=== PATIENT | male | born 1950 | race Caucasian/White ===

== ENCOUNTER 2017-09-22 13:02 | Outpatient (CLI) | payer MEDICARE, BC | END 2017-09-22 13:03 | disposition home or self-care (01) | LOC: BICRAD 13:02 | PROVIDERS: ATTEND Family Medicine | DX: M25.551 Pain in right hip (principal); M16.11 Unilateral primary osteoarthritis, right hip; R26.9 Unspecified abnormalities of gait and mobility; I70.90 Unspecified atherosclerosis ==

== ENCOUNTER 2017-10-21 13:57 | Outpatient (CLI) | payer MEDICARE, BC ==
--- NOTE | 2017-10-21 15:23 | MRI ---
BRAIN MRI WITHOUT CONTRAST: INDICATION: Abnormal gait with left arm motor abnormality, left leg weakness, and history of fall. FINDINGS: Intraventricular system is age-appropriate in size. There is no acute territorial infarction, mass e ffect, or midline shift. Minimal chronic ischemic disease of the cerebral white matter is present. The central skull base flow voids are patent. There is prominent mucosal thickening of the right max illary sinus. Minimal right mastoid fluid signal is present. There are scattered punctate susceptib ility foci of the cerebral hemispheres bilaterally. IMPRESSION: 1. No acute territorial infarction or mass effect. 2. Several scattered punctate foci of susceptibility. This can be seen in the setting of a vasculop athy, such as amyloid angiopathy. Recommend clinical correlation. 3. Minimal chronic ischemic disease. 4. Prominent mucosal thickening of the right paranasal sinus. As clinically indicated, followup wit h dedicated paranasal sinus CT may be performed for further evaluation. POS: [facility]
--- NOTE | 2017-10-21 16:02 | MRI ---
MRI CERVICAL SPINE NONCONTRAST: 10/21/17 HISTORY: 67-year-old male with M47.12, cervical spondylosis with myelopathy. Abnormal gait. Status post fall. Dr. Reed discussed the findings by telephone with Dr. Sweta Yee at 3:05 p.m. on 10/21/17. COMPARISON: None. FINDINGS: There is a well circumscribed, oval, 4 x 2 x 2 cm mass in the subcutaneous fat centered to the right of midline, posterior to the dorsal lumbar fascia of C7 to T1-2. It has intermediate signal intensit y on T1WI; and mixed signal intensity, predominantly hyperintense, on T2WI. It has at least one inter nal septation. There is no surrounding edema in the adjacent subcutaneous fat. Moderate to severe degenerative disc changes at C3-4, C4-5, and C6-7. Bone marrow edema at the end pl ates at C6-7. The end plate bone marrow edema is mostly on the right side. There is edema in the righ t prevertebral space at C6 and C7. There is T2 hyperintense signal in the space between the C6 and C7 spinous processes. Vertebral body heights are maintained. Bone marrow edema extends into the right C7 pedicle and involves the right C7 upper articular facet. There are degenerative facet changes, moderate at a few levels on the left and mostly mild on the rig ht. The findings by individual levels are as follows: C1-2: No central stenosis. C2-3: No central stenosis. Mild to moderate left neural foraminal stenosis. Mild right neural foramin al stenosis. C3-4: Broad based disc-osteophytic bar complex, asymmetrically larger on the left side than right, en croaches upon the spinal canal, indenting the spinal cord and displacing it posteriorly within the sp inal canal, causing moderate to severe central spinal canal stenosis. Bilateral uncinate process oste ophytes. Bilateral moderate neural foraminal stenosis. C4-5: Broad based disc-osteophyte bar complex indents the ventral surface of the spinal cord. Moderat e to severe central spinal canal stenosis. Bilateral uncinate process osteophytes. Severe right neura l foraminal stenosis. Moderate left neural foraminal stenosis. C5-6: Broad based disc-osteophytic bar complex encroaches upon the anterior aspect of the spinal francheska l. There is a superimposed small central disc protrusion which indents the ventral surface of the spi nal cord. Moderate to severe central spinal canal stenosis. moderate to severe bilateral neural carol inal stenosis. C6-7: There is a moderate to large central and bilateral paracentral extruded disc herniation with gtz perior migration of disc material a short distance almost to the pedicle level of C6, and inferior mi gration of disc material to the pedicle level of C7. This is disc herniation occupies approximately 5 0 to 75% of the cross-sectional area of the spinal canal, severely indenting and deforming the spinal cord which is severely flattened in the anteroposterior dimension. There is a small focus of intrame dullary T2 hyperintensity at this location representing cord edema. There is ligamentum flavum thicke nasir significantly indenting the dorsal surface of the spinal cord. CSF signal is obliterated. These factors result in extremely severe central spinal canal stenosis. Bilateral uncinate process osteophy michelle result in severe bilateral neural foraminal stenosis. C7-T1: Moderate central spinal canal stenosis mostly on a developmental basis. Bilateral moderate bhumi ral foraminal stenosis. IMPRESSION: 1. Severe cord compression and extremely severe central spinal canal stenosis, and least mild co rd edema, at C6-7, due to a moderate to large central and bilateral paracentral extruded disc herniat ion. It is possible that this could be a traumatic disc extrusion, given the history of fall. 2. Cervical spondylosis, with multilevel high grade central spinal canal stenosis, and high grad e neural foraminal stenosis. 3. Signs of focal traumatic injury to the interspinous ligament at C6-7. 4. Bone marrow edema of the end plates on the right side at C6-7. This could represent Modic typ e I changes, or could represent traumatic acute bone contusion. 5. Well circumscribed superficial mass in the subcutaneous fat posterior to the upper thoracic s pine. This appears non-aggressive. It is probably cystic with proteinaceous or hemorrhagic contents. Clinical correlation is recommended.
--- NOTE | 2017-10-21 16:19 | MRI ---
MRI LUMBAR SPINE NONCONTRAST: DATE: 10/21/17 HISTORY: 67-year-old male with R26.9 - gait abnormality. COMPARISON: None. FINDINGS: There is mild anterior wedge compression deformity of T12 without bone marrow edema, indicating that it is old. The L1 through L5 vertebral body heights are maintained. T12-L1: No other findings. L1-2: Conus medullaris terminates at this level. No other findings. L2-3: Minimal disc bulge. Disc space maintained. No central or neural foraminal stenosis. L3-4: Severe left sided end plate bone marrow edema represents Modic type 1 changes. Moderate to skylar re right sided disc space narrowing. Severe left disc space narrowing with end plate irregularities. Joint effusions within the bilateral facet joint spaces. Mild to moderate bilateral degenerative face t hypertrophy. Central and left paracentral moderate sized disc extrusion which significantly decreas es the cross-sectional area of the spinal canal, causing crowding of the cauda equina, and effacement of CSF signal. This disc extrusion migrates superiorly in the left paracentral epidural space, reach ing the L3 pedicle level. the disc extrusion completely effaces the left lateral recess, impinging on nerve roots, especially the left L4 nerve root. Moderate right neural foraminal stenosis. Severe lef t neural foraminal stenosis L4-5: Moderate disc space narrowing, asymmetrically more severe on the right side than left. Moderate to severe bilateral neural foraminal stenosis. Bilateral moderate degenerative facet changes, with f acet hypertrophy and facet joint effusions. Tiny subchondral cysts at the right facet complex. Diffus e disc bulge. Degenerative retrolisthesis of L3 on L4. Mild to moderate central spinal canal stenosis . Lateral recess stenosis bilaterally. L5-S1: There are bilateral L5 pars interarticularis defects causing a grade I anterolisthesis of L5 o n S1. There is moderate to severe disc space narrowing. There is severe bilateral neural foraminal st enosis with severe compression and deformity of the bilateral exiting L5 nerve roots. At the mid L5 l evel, there is decreased transverse diameter of the spinal canal and thecal sac causing mild to moder ate thecal sac stenosis. There is no thecal sac stenosis at the level of the superior end plate of S1 . No high grade bilateral degenerative facet changes. IMPRESSION: 1. At L3-4, there is a moderate to large extruded disc herniation with superior migration of ext ruded disc material, causing severe central spinal canal stenosis, and impingement on nerve roots, es pecially the left L4 nerve root. 2. Grade I spondylolisthesis at L5-S1 due to bilateral L5 spondylolysis. 3. Chronic, severe bilateral neural foraminal stenosis at L5-S1, with severe chronic compression of the bilateral L5 exiting nerve roots. 4. Other levels of high grade neural foraminal stenosis. KELLY Haque POS: [facility]
== END 2017-10-21 13:58 | disposition home or self-care (01) ==
LOC: TBSIIMAG 13:57
PROVIDERS: ATTEND Psychiatry & Neurology Neurology
DX: M50.123 Cervical disc disorder at C6-C7 level with radiculopathy (principal); M47.22 Other spondylosis with radiculopathy, cervical region; R26.9 Unspecified abnormalities of gait and mobility; M48.02 Spinal stenosis, cervical region; M99.81 Other biomechanical lesions of cervical region; M89.9 Disorder of bone, unspecified; M51.26 Other intervertebral disc displacement, lumbar region; M48.061 Spinal stenosis, lumbar region without neurogenic claudication; M43.17 Spondylolisthesis, lumbosacral region; M47.896 Other spondylosis, lumbar region; M99.83 Other biomechanical lesions of lumbar region; I67.82 Cerebral ischemia
CPT/HCPCS: 70551; 72141; 72148

== ENCOUNTER 2017-10-21 15:53 | Emergency (ER) | payer MEDICARE, BC ==
[2017-10-21] MEDS ORDERED: Dexamethasone 10 MG/ML VIAL ONE (19:15)
[2017-10-21 19:24] LABS: Bilirubin Negative (Negative); Blood, Urine Negative (Negative); Clarity CLEAR (Clear); Glucose, Urine (Dipstick) 500 mg/dL (Negative); Leukocyte Negative (Negative); Nitrite Negative (Negative); Protein, Urine (Dipstick) Negative (Neg-Trace); Specific Gravity, Urine 1.014 (1.002-1.036); pH, Urine 6.5 (5.0-9.0)
[2017-10-21 19:44] LABS: #Eosinphils 0.1 thou/uL (0.0-0.7); #Monocytes 0.6 thou/uL (0.11-0.59); #Neutrophils 5.2 thou/uL (1.40-6.50); %Basophils 0.5 % (0.0-1.0); %Eosinophils 1.4 % (0.0-10.0); %Lymphocytes 14.3 % (21.0-51.0); %Monocytes 8.1 % (0.0-10.0); %Neutrophils 75.7 % (42.0-75.0); Hemoglobin 13.4 g/dL (14.0-18.0); Mean Corpuscular HGB CONC 33.7 g/dL (32.0-36.0); Mean Corpuscular Hemoglobin 29.1 pg (27.0-31.0); Mean Corpuscular Volume 86.5 fL (78.0-98.0); Mean Platelet Volume 7.4 fL (7.4-10.4); Platelet Count 203 thou/uL (130-400); RBC Distribution Width 14.3 % (11.5-14.5); Red Blood Cell (RBC) Count 4.61 mill/uL (4.70-6.10); White Blood Cell (WBC) Count 6.8 thou/uL (4.8-10.8)
[2017-10-21 19:49] LABS: INR-International Normal Ratio 2.2; PTT 51.4 SEC (22.9-36.1); Prothrombin Time 24.6 SEC (12.0-14.7)
[2017-10-21 20:06] LABS: ALT (SGPT) 27 U/L (8-55); AST (SGOT) 29 U/L (5-34); Albumin 4.3 g/dL (3.4-4.8); Alkaline Phosphatase 70 U/L (40-150); Anion Gap 14 mmol/L (10-20); BUN (Urea Nitrogen) 16 mg/dL (8.4-25.7); Bilirubin, Total 1.1 mg/dL (0.2-1.2); Calc. Creatinine Clearance 0 mL/min (70-130); Calcium 9.7 mg/dL (7.8-10.44); Carbon Dioxide 25 mmol/L (23-31); Chloride 99 mmol/L (98-107); Estimated GFR-MDRD 70; Globulin 2.5 g/dL (2.4-3.5); Glucose 132 mg/dL (80-115); Lipase 37 U/L (8-78); Magnesium 1.4 mg/dL (1.6-2.6); Potassium 3.8 mmol/L (3.5-5.1); Protein, Total 6.8 g/dL (5.8-8.1); Sodium 134 mmol/L (136-145)
--- NOTE | 2017-10-22 04:13 | CON ---
DATE OF CONSULTATION: 10/21/2017 HISTORY OF PRESENT ILLNESS: Mr. Rincon is a 67-year-old gentleman with significant past medical his tory of coronary bypass, who was sent to our ED for evaluation following MRI of cervical and lumbar s pine. Dr. Yee has seen this patient in the office for progressive weakness and unsteady gait. Over the last six weeks, the patient had a few falls. He states that his right leg is worse than his lef t, they give out from time to time. 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 MRI of the cervical spine showed severe spinal stenosis at C6-C7. The patien t also states that he has some neck pain and radiating pain through his shoulders and numbness in his hands. The patient states that he has had difficulty with his upper extremities for 10+ years. He has had difficulty with fine motor skills. He is unable to button his shirts very well. He has give n out bowling because of some tremors. REVIEW OF SYSTEMS: A 10-point review of systems has been conducted and is negative, otherwise stated in HPI above. PAST MEDICAL HISTORY: Arrhythmia, atrial fibrillation, diabetes, hyperlipidemia, hypertension, muscu loskeletal disorder, rheumatoid arthritis. PAST SURGICAL HISTORY: Coronary artery bypass and graft 4 vessels in 2005. SOCIAL HISTORY: The patient denies any alcohol, drug, or tobacco use. The patient lives at home wit h his and family. The patient is active. He is retired and has only recently started using a c ane to ambulate. ALLERGIES: No known drug allergies. MEDICATIONS: Aspirin 81 mg, lisinopril/hydrochlorothiazide, carvedilol, glyburide, Cartia, metformin , atorvastatin, warfarin, ezetimibe, fish oil, vitamin D, methotrexate, folic acid. PHYSICAL EXAMINATION: VITAL SIGNS: BP 180/86, heart rate 81, respiratory rate 16, temperature 98.1, pain 5/10, 99 O2 sats on room air. CONSTITUTIONAL: The patient is afebrile. Respiratory rate is normal. Appears nontoxic. Fairly rel axed, lying in his hospital bed. The patient is oriented to person, place, and time. HEAD: Normocephalic, atraumatic. EYES: Pupils are equal, round, and reactive to light. Extraocular movements are intact. No nystagm us. NECK: Trachea is midline. The patient has cervical collar on and tenderness along spine. Extension causes numbness across the shoulder blades, flexion is painful, rotation is painful. RESPIRATORY: Normal work of breathing room air, symmetrical lung expansion. CARDIOVASCULAR: Regular rate and rhythm. NEUROLOGIC: The patient has 5/5 strength in upper and lower extremities. The patient has decreased reflexes in the upper extremity. The patient is oriented to person, place, and thing. Cranial nerve s II-XII are grossly intact. IMAGING: Cervical spine MRI shows severe cord compression and extremely severe central spinal canal stenosis with at least mild cord edema and C6-C7 due to herniated nucleus pulposus. Lumbar MRI shows moderate herniated nucleus pulposus at L3-L4 causing central spinal stenosis, especi ally to a left L4 nerve root, grade 1 spondylolisthesis at L5-S1, bilateral severe neuroforaminal isauro nosis at L5-S1. ASSESSMENT AND PLAN: Mr. Rincon who is a 67-year-old gentleman reports to the ED with chronic decre ase in gait, due to cervical spinal stenosis. The patient has had upper extremity dysfunction, slowl y progressively getting worse over the last 10+ years. More recently, gait and station have become d eteriorated over the last 1 to 2 months. The patient is also currently taking warfarin and aspirin a long with fish oil. These blood thinners make it unsafe to perform surgery at this time. The patien t will need to be transitioned to low molecular weight heparin prior to the surgery and off his blood thinners for 2 weeks after surgery. The patient should be started on Decadron 4 mg q.6. The patient needs to be monitored. He needs to wear his cervical collar and he should follow up with our office. At this time, surgical intervention would be unsafe due to his blood thinners. The [facility] ient will also need to obtain cardiac and anesthesia clearance for surgery.
== END 2017-10-21 21:00 | disposition home or self-care (01) ==
LOC: ERS 15:53
DX: M48.061 Spinal stenosis, lumbar region without neurogenic claudication (principal); M48.02 Spinal stenosis, cervical region; M51.26 Other intervertebral disc displacement, lumbar region; E11.9 Type 2 diabetes mellitus without complications; I10 Essential (primary) hypertension
CPT/HCPCS: 36415; 36416; 70551; 72141; 72148; 80053; 81003; 83690; 83735; 85025; 85610; 85730; 93005; 96374; J1100

== ENCOUNTER 2017-10-26 20:09 | Inpatient (IN) | payer MEDICARE, BC ==
[2017-10-26 21:24] VITALS: BMI 25.9
[2017-10-26] MEDS ORDERED: Acetaminophen 325 MG TAB PO PRN (21:58)
[2017-10-26] MEDS ORDERED: traMADol HCl 50 MG TAB PO PRN (21:59)
[2017-10-26] MEDS ORDERED: HYDROcodone/Acetaminophen 5/325 mg Tablet PO PRN (22:00)
[2017-10-26] MEDS ORDERED: CEFAZOLIN/Water 2 GM/20 ML SYRINGE SLOW IVP SCH (22:00)
[2017-10-26] MEDS ORDERED: tiZANidine HCl 4 MG TAB PO PRN (22:02)
[2017-10-26 22:49] LABS: #Lymphocytes 0.4 thou/uL (1.20-3.40); #Monocytes 0.6 thou/uL (0.11-0.59); #Neutrophils 12.3 thou/uL (1.40-6.50); %Basophils 0.1 % (0.0-1.0); %Eosinophils 0.1 % (0.0-10.0); %Lymphocytes 3.2 % (21.0-51.0); %Monocytes 4.1 % (0.0-10.0); %Neutrophils 92.5 % (42.0-75.0); Hemoglobin 14.7 g/dL (14.0-18.0); Mean Corpuscular Hemoglobin 29.4 pg (27.0-31.0); Mean Corpuscular Volume 86.7 fL (78.0-98.0); Mean Platelet Volume 8.1 fL (7.4-10.4); Platelet Count 230 thou/uL (130-400); White Blood Cell (WBC) Count 13.2 thou/uL (4.8-10.8)
[2017-10-26 22:55] LABS: INR-International Normal Ratio 1.2; Prothrombin Time 15.4 SEC (12.0-14.7)
[2017-10-26 22:56] LABS: PTT 31.1 SEC (22.9-36.1)
[2017-10-26 23:08] LABS: Anion Gap 25 mmol/L (10-20); BUN (Urea Nitrogen) 65 mg/dL (8.4-25.7); Calc. Creatinine Clearance 32 mL/min (70-130); Calcium 9.7 mg/dL (7.8-10.44); Carbon Dioxide 20 mmol/L (23-31); Chloride 95 mmol/L (98-107); Estimated GFR-MDRD 31; Glucose 397 mg/dL (80-115); Potassium 4.9 mmol/L (3.5-5.1); Sodium 135 mmol/L (136-145)
[2017-10-27] MEDS: Sodium Chloride 0.9% 1,000 ML IV SCH ×2 (00:13→12:54)
[2017-10-27] MEDS ORDERED: Dextrose 50% Abboject 50 ML SYRINGE SLOW IVP PRN (08:23)
[2017-10-27] MEDS ORDERED: Dextrose 5% in Water 1,000 ML IV PRN (08:23)
[2017-10-27] MEDS ORDERED: Aspirin 81 mg Enteric Coated Tablet PO SCH (09:00)
[2017-10-27] MEDS ORDERED: Non-Formulary Item 1 EACH (Cholecalciferol (Vitamin D3) [Vitamin D] 2,000 UNIT) PO SCH (09:00)
[2017-10-27] MEDS ORDERED: metFORMIN 500 MG TAB PO SCH (09:00)
[2017-10-27] MEDS ORDERED: Lisinopril/Hydrochlorothiazide 20/25 mg Tablet PO SCH (09:00)
--- NOTE | 2017-10-27 09:23 | CON ---
DATE OF CONSULTATION: 10/27/2017 PRIMARY CARE PHYSICIAN: Dr. Yonny Cobian. PRIMARY SERVICE ATTENDING: Dr. Hauser with Neurosurgery. REASON FOR CONSULT: Medical management/preoperative clearance for cervical diskectomy/fusion. HISTORY OF PRESENT ILLNESS: This is a 67-year-old male who presents to [facility] under the Neurosurgical service after concern for worsening radiculopathy involving the cervical spine as well as lumbar spine. The patient with recent MRI of the cervical and lumbar spine showing severe spinal stenosis at the C6 and C7 region as well as a herniated nucleus pulposus of L3 and L4 with central spinal stenosis. The patient is being prepared for surgical intervention on 10/28/2017. The patient admits to a history of coronary artery disease undergoing bypass grafting x4 vessels in 2005. The patient developed in-stent stenosis, prompting a repeat cardiac catheterization at which point the patient was recommended for bypass surgery. The patient states he has been doing fairly we ll since the bypass surgery and has had no further cardiac intervention since 2005. The patient did develop postoperative atrial fibrillation during the bypass procedure undergoing subsequent cardiover levi and has remained on rate control measures with diltiazem as well as anticoagulation with Coumadi n. Patient states his last echocardiogram was approximately 2 years ago. The patient remains active ; however, has had difficulty ambulating as stated previously with recent fall in 07/2017 when his ri ght lower extremity gave way unexpectedly. The patient also had an episode of falling with a minor h ead injury in the last 1-2 weeks prior to this evaluation. The patient also admits to greater than 2 0 year history of diabetes mellitus on oral hypoglycemics with last A1c of approximately 7.5. Curren tly, the patient denies any specific chest pain, shortness of breath, left arm or jaw discomfort. Th e patient states he normally is very active walking in the mall for exercise as well as performing al l activities of daily living. PAST MEDICAL HISTORY: 1. Atrial fibrillation with chronic anticoagulation with Coumadin. 2. Diabetes mellitus type 2 on oral hypoglycemics greater than 20 years. 3. Hyperlipidemia. 4. Hypertension. 5. Rheumatoid arthritis. 6. Pericardial effusion, status post pericardial window in 2005. PAST SURGICAL HISTORY: 1. Status post coronary artery bypass grafting x4 vessels in 2005. 2. Status post cardiac catheterization with stent placement. 3. Status post pericardial window secondary to pericardial effusion. 4. Status post cardioversion secondarily to atrial fibrillation. CURRENT MEDICATIONS: 1. Aspirin 81 mg 1 tab p.o. daily. 2. Lipitor 80 mg p.o. at bedtime. 3. Coreg 25 mg p.o. q.a.m. and 37.5 mg p.o. at bedtime. 4. Vitamin D 2000 units p.o. daily. 5. Dexamethasone 4 mg p.o. q.i.d. 6. Diltiazem XT 120 mg p.o. daily. 7. Zetia 10 mg p.o. at bedtime. 8. [place] 3 fatty acids 1200 mg p.o. daily. 9. Folic acid 1 mg p.o. at bedtime. 10. Glyburide 5 mg p.o. b.i.d. 11. Lisinopril/HCTZ 20/25 mg 1 tab p.o. daily. 12. Metaxalone 800 mg p.o. b.i.d. 13. Metformin 1000 mg p.o. b.i.d. 14. Methotrexate 2.5 mg 5 tablets p.o. weekly. 15. Coumadin 5 mg p.o. at bedtime. ALLERGIES: No known drug allergies. FAMILY HISTORY: Positive for diabetes mellitus. SOCIAL HISTORY: The patient is , residing in [place], [place]. No current alcohol, tobacco or il licit drug use. Functional of all activities of daily living. Recent use of a rolling walker after lower extremity weakness and fall. REVIEW OF SYSTEMS: The following complete review of systems was negative, unless otherwise mentioned in the HPI or below: Constitutional: Weight loss or gain, ability to conduct usual activities. Skin: Rash, itching. Eyes: Double vision, pain. ENT/Mouth: Nose bleeding, neck stiffness, pain, tenderness. Cardiovascular: Palpitations, dyspnea on exertion, orthopnea. Respiratory: Shortness of breath, wheezing, cough, hemoptysis, fever or night sweats. Gastrointestinal: Poor appetite, abdominal pain, heartburn, nausea, vomiting, constipation, or diarr hea. Genitourinary: Urgency, frequency, dysuria, nocturia. Musculoskeletal: Pain, swelling. Neurologic/Psychiatric: Anxiety, depression. Allergy/Immunologic: Skin rash, bleeding tendency. PHYSICAL EXAMINATION: VITAL SIGNS: Currently, blood pressure 156/81, pulse 100, respiratory rate 16, temperature 97.9 degr ees Fahrenheit, O2 saturation 98% on room air. GENERAL APPEARANCE: This is a 67-year-old male, alert and oriented x3, pleasant, conversant, in no a cute distress. HEENT: Pupils are equal, round, and reactive to light and accommodation. Extraocular muscles are in tact. No scleral icterus, no conjunctival injection. Nares patent. OP is clear. Teeth in good rep air. NECK: Supple, no cervical adenopathy, no thyromegaly, no carotid bruits, no JVD appreciated. Cervic al spine with full active and passive range of motion. No meningeal signs appreciated. CHEST: Lungs are clear to auscultation bilaterally. CARDIOVASCULAR: S1, S2 with irregular rate and rhythm. ABDOMEN: Rounded, soft, nontender, nondistended. Bowel sounds are positive in all four quadrants. There is no hepatosplenomegaly, no abdominal bruits, no rebound or guarding appreciated. EXTREMITIES: Warm and dry with fair turgor. No clubbing, cyanosis or asymmetric edema appreciated. Pulses palpable distally at the dorsalis pedis, posterior tibial, and popliteal arteries bilaterally . Capillary refill less than 2 seconds. NEUROLOGIC: Cranial nerves II through XII are grossly intact. No focal or lateralizing signs apprec iated. PERTINENT LABORATORY DATA AND X-RAY FINDINGS: Sodium 135, potassium 4.9, chloride 95, CO2 of 20, ani on gap 25, BUN 65, creatinine 2.14, estimated GFR 31, glucose 397, calcium 9.7. CBC showed a white b lood cell count of 13.2, hemoglobin 14.7, hematocrit 43, platelet count 230 with 93% neutrophils. PT 15.4, INR 1.2, PTT 31.1. MRI of the brain dated 10/21/2017 showed no acute intracranial process. M inimal chronic ischemic changes noted. Cervical spine MRI dated 10/21/2017 showed severe cord compre ssion with severe central spinal canal stenosis at C6 on C7 due to moderate to large central and bila teral paracentral extruded disk herniation. Lumbar spine MRI dated 10/21/2017 showed moderate to lar ge extruded disk herniation at L3 on L4 with severe central spinal canal stenosis. Multiple degenera tive changes noted throughout the lumbar spine, please see dictated report for details. EKG dated by my interpretation shows atrial fibrillation with heart rates in the 90s. Right bundle br anch block pattern noted. No acute ST-T wave changes appreciated. ASSESSMENT AND PLAN: 1. Diabetes mellitus type 2. We will continue insulin sliding scale for reflexive coverage. Hold m etformin x48 hours. Accu-Cheks a.c. and at bedtime. Continue glyburide 5 mg p.o. b.i.d. 2. Acute kidney injury on chronic kidney disease stage 3. We will continue intravenous normal salin e at 75 mL per hour. Avoid nephrotoxic agents and contrast media. Hold metformin and lisinopril/HCT Z. Repeat creatinine in the a.m. 3. Coronary artery disease. Chronic and stable. Continue aspirin 81 mg daily. Continue Lipitor 80 mg at bedtime. Continue carvedilol 25 mg q.a.m. and 37.5 mg at bedtime. Check 2D transthoracic ech ocardiogram. 4. Chronic atrial fibrillation with chronic anticoagulation with Coumadin. Rate controlled currentl y. Check 2D transthoracic echocardiogram as stated previously. Hold anticoagulation due to pending surgical intervention. Resume anticoagulation postoperatively. 5. Hypertension. Resume home antihypertensive regimen and monitor clinical response. Hold lisinopr il/HCTZ due to acute kidney injury. 6. Cervical and lumbar spinal stenosis. Plan for surgical intervention with decompression and fusio n. A planned surgical intervention on 10/28/2017 per Neurosurgical service. Mild to moderate risk o f proceeding with current planned surgical intervention given the patient's coronary artery disease a nd atrial fibrillation history. 7. Prophylaxis. Sequential compression devices while in bed. Pepcid 20 mg p.o. b.i.d. 8. Code status is full. Surrogate medical decision maker is patient's spouse. Thank you for the consult. We will continue to follow with primary service during the hospital cours e.
[2017-10-27] MEDS: Carvedilol 25 MG TAB PO SCH ×2 (09:34→21:10)
[2017-10-27] MEDS: Aspirin 81 mg Enteric Coated Tablet PO SCH (09:34)
[2017-10-27] MEDS: Dexamethasone 4 MG TAB PO SCH ×4 (09:35→21:11)
--- NOTE | 2017-10-27 09:53 | PRG ---
DATE OF SERVICE: 10/27/2017 Mr. Rincon is hospital day #1 being direct admitted to undergo a C6-7 ACDF tomorrow afternoon for ce rvical spondylytic myelopathy. The patient does not complain of pain at all, but continues to have d ifficulty with fine motor coordination of the hands. He has remained mostly on bed rest, although he does have bathroom privileges. He has bilateral hand tdp displays analyst strength weakness, but otherwise has good strength in the hands and the legs. He is wearing a well-fitting [place] collar. I have answered his numerous questions today and we will plan to undergo surgery tomorrow. He can continue his 81 mg as pirin and we have hospitalist on board to help manage the patient's medical conditions. He will be n .p.o. at midnight and this has been ordered. Please call with any questions or changes in the patien t's neurologic status. Otherwise, we will check on him in the morning.
[2017-10-27] MEDS: glyBURIDE 5 MG TAB PO SCH ×2 (10:55→21:12)
[2017-10-27] MEDS: HumaLOG 300 UNITS/3 ML VIAL SC PRN ×3 (12:54→21:14)
[2017-10-27] MEDS: Senokot 8.6 MG TAB PO SCH (17:08)
[2017-10-27] MEDS ORDERED: Non-Formulary Item 1 EACH (Atorvastatin Calcium [Atorvastatin Calcium] 80 MG) PO SCH (21:00)
[2017-10-27] MEDS ORDERED: Carvedilol 25 MG TAB PO SCH (21:00)
[2017-10-27] MEDS: Atorvastatin Calcium 40 MG TAB PO SCH (21:11)
[2017-10-27] MEDS: Ezetimibe 10 MG TAB PO SCH (21:12)
[2017-10-27] MEDS: Folic Acid 1 MG TAB PO SCH (21:12)
[2017-10-28] MEDS: Sodium Chloride 0.9% 1,000 ML IV SCH ×4 (01:47→20:50)
[2017-10-28] MEDS: Aspirin 81 mg Enteric Coated Tablet PO SCH (07:45)
[2017-10-28] MEDS: Carvedilol 25 MG TAB PO SCH ×2 (07:45→20:32)
[2017-10-28] MEDS: glyBURIDE 5 MG TAB PO SCH ×2 (07:45→17:16)
[2017-10-28] MEDS: Dexamethasone 4 MG TAB PO SCH ×4 (07:46→20:33)
[2017-10-28 08:04] LABS: Hemoglobin 14.7 g/dL (14.0-18.0); Mean Corpuscular HGB CONC 32.5 g/dL (32.0-36.0); Mean Corpuscular Hemoglobin 28.2 pg (27.0-31.0); Mean Corpuscular Volume 86.7 fL (78.0-98.0); Mean Platelet Volume 7.9 fL (7.4-10.4); Platelet Count 209 thou/uL (130-400); RBC Distribution Width 13.7 % (11.5-14.5); Red Blood Cell (RBC) Count 5.23 mill/uL (4.70-6.10); White Blood Cell (WBC) Count 17.4 thou/uL (4.8-10.8)
[2017-10-28 08:30] LABS: Anion Gap 17 mmol/L (10-20); BUN (Urea Nitrogen) 37 mg/dL (8.4-25.7); Calc. Creatinine Clearance 71 mL/min (70-130); Carbon Dioxide 24 mmol/L (23-31); Chloride 100 mmol/L (98-107); Estimated GFR-MDRD 78; Glucose 223 mg/dL (80-115); Magnesium 1.9 mg/dL (1.6-2.6); Potassium 4.5 mmol/L (3.5-5.1); Sodium 136 mmol/L (136-145)
[2017-10-28 08:34] LABS: Band 3 % (5-11); Burr Cells MODERATE= 6-15 cells (100X) (0-1/hpf); Lymphocytes 2 % (21-51); MDiff Complete? YES; Neutrophil 87 % (42-75); PLT Morphology Comment Appears Adequate; Promyelocytes 1 % (0-0); Reactive Lymphocytes 7 % (0-10)
[2017-10-28] MEDS ORDERED: Docusate 100 MG CAP PO SCH (09:00)
[2017-10-28] MEDS ORDERED: Pantoprazole 40 MG VIAL IVP SCH (09:00)
[2017-10-28] MEDS ORDERED: CEFAZOLIN/Water 2 GM/20 ML SYRINGE ONE (10:38)
[2017-10-28] MEDS ORDERED: Thrombin 5000 UNITS/5 ML VIAL ONE (10:40)
[2017-10-28] MEDS ORDERED: Sodium Chloride 0.9% 10 ML ONE (10:40)
--- NOTE | 2017-10-28 12:29 | PRG ---
DATE OF SERVICE: 10/28/2017 SUBJECTIVE: Mr. Rincon remained stable. He does have significant cervical spondylosis with myelopa thy and continued numbness and tingling into the hands. He continues to deny pain. He is on Decadro n and Protonix. He has been on bed rest and is anxious to get his surgery done today. He has good s trength in the bilateral upper and bilateral lower extremities with the exception of some very mild b ilateral hand intrinsic weakness. We have discussed ACDF briefly and will do this in preop late r when his is present. He is ready to proceed with surgery. It does appear that he has been cl eared for surgery by our [facility] team. He does have an elevated white blood cell count again secondar y to Decadron use, but his blood glucose levels are improving. We will continue to monitor the patie nt and we will plan for ACDF later this afternoon. He should be n.p.o. and has remained as such. Girish Savage PA-C dictating fro Dr. Maurizio Hauser.
[2017-10-28] MEDS ORDERED: Fentanyl 100 MCG/2 ML VIAL ONE (12:41)
[2017-10-28] MEDS ORDERED: HYDROmorphone 0.5 MG/0.5 ML SYRINGE ONE (13:38)
[2017-10-28] MEDS ORDERED: Promethazine HCl 25 MG/ML VIAL SLOW IVP PRN (15:56)
[2017-10-28] MEDS ORDERED: Ondansetron HCl/PF 4 MG/2 ML Vial IVP PRN (15:56)
[2017-10-28] MEDS ORDERED: HYDROmorphone 2 MG/ML VIAL SLOW IVP PRN (15:56)
[2017-10-28] MEDS ORDERED: Promethazine HCl 25 MG/ML VIAL IM PRN (15:56)
[2017-10-28] MEDS: HumaLOG 300 UNITS/3 ML VIAL SC PRN ×2 (17:16→20:49)
[2017-10-28] MEDS ORDERED: Labetalol HCl 100 MG/20 ML VIAL SLOW IVP PRN (19:07)
[2017-10-28] MEDS ORDERED: hydrALAZINE 20 MG/ML VIAL SLOW IVP PRN (19:07)
[2017-10-28] MEDS: Folic Acid 1 MG TAB PO SCH (20:31)
[2017-10-28] MEDS: Ezetimibe 10 MG TAB PO SCH (20:32)
[2017-10-28] MEDS: Senokot 8.6 MG TAB PO SCH (20:32)
[2017-10-28] MEDS: Atorvastatin Calcium 40 MG TAB PO SCH (20:33)
--- NOTE | 2017-10-28 21:02 | PDOC.PN ---
- Subjective Encounter Start Date: 10/28/17 Encounter Start Time: 19:00 Patient seen and examined for med mngt. No new complaints. No overnight events - Objective Resuscitation Status: Resuscitation Status FULL:Full Resuscitation MAR Reviewed: Yes Vital Signs & Weight: Vital Signs (12 hours) Temp Pulse Resp BP Pulse Ox 10/28/17 16:31 98.5 F 101 H 18 127/90 98 Weight Weight 151 lb I&O: 10/27/17 10/28/17 10/29/17 06:59 06:59 06:59 Intake Total 1340 2690 Output Total 750 450 Balance 590 2240 Result Diagrams: 10/28/17 07:52 10/29/17 04:50 Additional Labs: Accuchecks 10/28/17 10/28/17 10/28/17 20:21 16:33 06:13 POC Glucose 243 H 186 H 211 H 10/27/17 20:55 POC Glucose 236 H Phys Exam - Physical Examination Constitutional: NAD Respiratory: no wheezing, no rhonchi Cardiovascular: RRR, no rub Gastrointestinal: soft, non-tender, positive bowel sounds Musculoskeletal: no edema Neurological: moves all 4 limbs Dx/Plan - Plan IMPRESSION: 1. DM2 Cont Glyburide 2. HLD Cont Statins/Zetia 3. Chr Afib - Rate controlled Cont Coreg/Diltiazem 4. SHAYNE on CKD 2 - improving with IVF Cont IVF Resume Lisinopril/HCTZ at dc AM labs 5. HTN Cont Coreg Lisinopril/HCTZ on hold due to SHAYNE Review of Systems - Review of Systems Cardiovascular: negative: chest pain, palpitations, orthopnea, paroxysmal nocturnal dyspnea, edema, light headedness, other Gastrointestinal: Constipation. negative: Nausea, Vomiting, Abdominal Pain, Diarrhea, Melena, Hematochezia, Other - Medications/Allergies Allergies/Adverse Reactions: Allergies Allergy/AdvReac Type Severity Reaction Status Date / Time No Known Allergies Allergy Unverified 10/26/17 21:25 Medications: Current Medications Acetaminophen (Tylenol) 650 mg PO Q4H PRN PRN Reason: Fever or Pain 1-3 Hydrocodone Bitart/Acetaminophen ([place] 5/325) 1 tab PO Q6H PRN PRN Reason: MODERATE PAIN 4-6 Last Admin: 10/28/17 17:57 Dose: 1 tab Atorvastatin Calcium (Lipitor) 80 mg PO HS [facility] Last Admin: 10/28/17 20:33 Dose: 80 mg Carvedilol (Coreg) 25 mg PO QAM [facility] Last Admin: 10/28/17 07:45 Dose: 25 mg Carvedilol (Coreg) 37.5 mg PO QPM [facility] Last Admin: 10/28/17 20:32 Dose: 25 mg Cefazolin Sodium (Ancef) 2 gm SLOW IVP Q8HR [facility] Cholecalciferol (Vitamin D3) 2,000 units PO DAILY [facility] Last Admin: 10/28/17 07:46 Dose: Not Given Dexamethasone (Decadron) 4 mg PO QID [facility] Last Admin: 10/28/17 20:33 Dose: 4 mg Dextrose/Water (Dextrose 50%) 25 gm SLOW IVP PRN PRN PRN Reason: Hypoglycemia Diltiazem HCl (Cardizem Cd) 120 mg PO DAILY [facility] Last Admin: 10/28/17 07:45 Dose: 120 mg Docusate Sodium (Colace) 100 mg PO DAILY [facility] Last Admin: 10/28/17 07:46 Dose: Not Given Ezetimibe (Zetia) 10 mg PO QPM [facility] Last Admin: 10/28/17 20:32 Dose: 10 mg Folic Acid (Folvite) 1 mg PO QPM [facility] Last Admin: 10/28/17 20:31 Dose: 1 mg Glucagon (Glucagon) 1 mg IM PRN PRN PRN Reason: Hypoglycemia Glyburide (Diabeta) 5 mg PO BID-[facility] Last Admin: 10/28/17 17:16 Dose: 5 mg Hydralazine HCl (Apresoline) 5 mg SLOW IVP Q4H PRN PRN Reason: SBP Greater Than 180 Sodium Chloride (Normal Saline 0.9%) 1,000 mls @ 75 mls/hr IV .[id number] [facility] Last Admin: 10/28/17 20:50 Dose: 1,000 mls Dextrose/Water (D5w) 1,000 mls @ 0 mls/hr IV .Q0M PRN; As Directed PRN Reason: Hypoglycemia Insulin Human Lispro (Humalog) 0 units SC .BEDTIME SLIDING SC PRN PRN Reason: Bedtime Correctional Scale Last Admin: 10/28/17 20:49 Dose: 2 unit Insulin Human Lispro (Humalog) 0 units SC .MODERATE SLIDING SC PRN PRN Reason: Moderate Correctional Scale Last Admin: 10/28/17 17:16 Dose: 2 unit Labetalol HCl (Normodyne) 10 mg SLOW IVP Q4H PRN PRN Reason: Systolic BP > 180 Metaxalone (Skelaxin) 800 mg PO BID [facility] Last Admin: 10/28/17 20:34 Dose: Not Given Morphine Sulfate (Morphine) 2 mg SLOW IVP Q2H PRN PRN Reason: PAIN 7-10 Pantoprazole Sodium (Protonix) 40 mg IVP DAILY [facility] Last Admin: 10/28/17 09:55 Dose: 40 mg Senna (Senokot) 2 tab PO HS [facility] Last Admin: 10/28/17 20:32 Dose: 2 tab Sodium Chloride (Flush - Normal Saline) 10 ml IVF Q12HR [facility] Last Admin: 10/28/17 07:46 Dose: Not Given Sodium Chloride (Flush - Normal Saline) 10 ml IVF PRN PRN PRN Reason: Saline Flush Tizanidine HCl (Zanaflex) 4 mg PO Q8H PRN PRN Reason: FOR MUSCLE SPASM Tramadol HCl (Ultram) 50 mg PO Q6H PRN PRN Reason: MILD PAIN 1-3
[2017-10-28] MEDS: CEFAZOLIN/Water 2 GM/20 ML SYRINGE SLOW IVP SCH (22:22)
[2017-10-29] MEDS: CEFAZOLIN/Water 2 GM/20 ML SYRINGE SLOW IVP SCH (05:07)
[2017-10-29 05:32] LABS: Anion Gap 15 mmol/L (10-20); BUN (Urea Nitrogen) 35 mg/dL (8.4-25.7); Calc. Creatinine Clearance 70 mL/min (70-130); Calcium 8.3 mg/dL (7.8-10.44); Carbon Dioxide 22 mmol/L (23-31); Chloride 100 mmol/L (98-107); Estimated GFR-MDRD 76; Glucose 220 mg/dL (80-115); Magnesium 1.5 mg/dL (1.6-2.6); Potassium 4.7 mmol/L (3.5-5.1); Sodium 132 mmol/L (136-145)
[2017-10-29] MEDS: HumaLOG 300 UNITS/3 ML VIAL SC PRN (05:39)
[2017-10-29] MEDS ORDERED: Sodium Chloride 0.9% 1,000 ML IV SCH (07:42)
[2017-10-29] MEDS ORDERED: Magnesium Sulfate 2 GM in Sodium Chloride 0.9% 100 ML IVPB SCH (07:45)
[2017-10-29] MEDS ORDERED: Senokot S 8.6-50 MG TAB PO SCH (09:00)
[2017-10-29] MEDS ORDERED: Polyethylene Glycol 3350 17 GM Packet PO SCH (09:00)
[2017-10-29] MEDS: glyBURIDE 5 MG TAB PO SCH (09:07)
[2017-10-29] MEDS: Dexamethasone 4 MG TAB PO SCH (09:08)
[2017-10-29] MEDS: Carvedilol 25 MG TAB PO SCH (09:08)
[2017-10-29 11:52] VITALS: BP 177/94; TEMP 97.6
--- NOTE | 2017-10-29 11:59 | PRG ---
DATE OF SERVICE: 10/29/2017 POSTOPERATIVE NOTE SUBJECTIVE: Mr. Rincon is doing very well postoperative day 1 following ACDF. He is mobilizing. H e feels as if his paresthesias and dysesthesias in the hands are improved and he has improvement in h is fine motor coordination. 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 We will remove his drain and dismiss him. We will start half 2.5 mg of Coumadin on without bridging therapy per Dr. Zambrano. I have asked that in approximately a week, he arrange for a Coumadin clinic evaluation. He will be dismissed.
[2017-10-29] MEDS ORDERED: Dexamethasone 4 MG TAB PO SCH (12:00)
--- NOTE | 2017-10-29 14:56 | OP ---
DATE OF PROCEDURE: 10/28/2017 SURGEON: Maurizio Hauser M.D. [employer] TEAM LEADER: Girish Savage PA-C. PREPROCEDURE DIAGNOSIS: Cervical myelopathy with rapid decline and disk extrusion. POSTPROCEDURE DIAGNOSIS: Cervical myelopathy with rapid decline and disk extrusion. PROCEDURES: 1. Anterior C6-C7 diskectomy for decompression of spinal cord nerve roots. 2. Placement of interbody spacer with preparation of the endplates C6-C7 and packed with local bone autograft obtained from same incision, allograft, C6-C7. 3. Anterior cervical plate and screw fixation, C6-C7. 4. Use of operative microscope for microdissection. DESCRIPTION OF PROCEDURE: After informed consent was obtained from the patient, the patient was brou ght to OR. Proper patient pause and identification was carried out. He was placed in excellent endo tracheal anesthesia and positioned supine on the OR table. All appropriate points were padded. We i dentified the C6-C7 segment and a right anterior oblique line was drawn that allow for approach anter iorly to the C6-C7 segment. This region was sterilely cleansed, prepared and draped. Proper patient pause and identification was carried out. The wound was then opened with a combination of sharp, mo nopolar and blunt dissection and proceeded lateral to the tracheoesophageal bundle medial to the righ t carotid sheath. We identified the prevertebral layer of deep cervical fascia and the longus colli muscles were swept laterally. Retraction was placed. Distraction then occurred following localizati on film and then we brought the microscope in for microdissection. Diskectomy was performed with exc ellent decompression of the common dural tube and the C7 nerve roots where multiple large disk fragme nts removed. We then prepared the endplates. Interbody spacer of appropriate dimension was then amirah albert for arthrodesis. This was packed with local bone autograft obtained from same incision and allog raft. Microscope was removed. Anterior cervical plate and screw fixation then occurred at C6-C7. C opious irrigation occurred throughout. The wound was then closed in anatomic layers following placem ent of a drain. The patient then emerged from anesthesia.
[2017-10-30] MEDS ORDERED: Dexamethasone 1 MG TAB PO SCH (12:00)
--- NOTE | 2017-10-30 23:09 | EKG ---
Test Reason : STAT Blood Pressure : / mmHG Vent. Rate : 093 BPM Atrial Rate : 500 BPM P-R Int : 000 ms QRS Dur : 150 ms QT Int : 418 ms P-R-T Axes : 000 261 -08 degrees QTc Int : 519 ms Atrial fibrillation with a competing junctional pacemaker Right bundle branch block , plus right ventricular hypertrophy Abnormal ECG When compared with ECG of 21-OCT-2017 19:08, (Unconfirmed) T wave inversion now evident in Anterior leads Confirmed by Treasure BRYSON ([id number]) on 10/30/2017 11:08:34 PM Referred By: IFEANYI Confirmed By:Treasure BRYSON
[2017-10-31] MEDS ORDERED: Dexamethasone 1 MG TAB PO SCH (12:00)
[2017-11-01] MEDS ORDERED: Dexamethasone 1 MG TAB PO SCH (12:00)
== END 2017-10-29 12:33 | disposition home or self-care (01) | DRG 472 ==
LOC: SURG B 20:37
PROVIDERS: ADMIT Surgery; ATTEND Surgery
PROC: 0RG1070 Fusion of Cervical Vertebral Joint with Autologous Tissue Substitute, Anterior Approach, Anterior Column, Open Approach (ICD-10-PCS; principal; 2017-10-28)
PROC: 0RB30ZZ Excision of Cervical Vertebral Disc, Open Approach (ICD-10-PCS; 2017-10-28)
PROC: 00NW0ZZ Release Cervical Spinal Cord, Open Approach (ICD-10-PCS; 2017-10-28)
DX: M48.02 Spinal stenosis, cervical region (principal); M47.022 Vertebral artery compression syndromes, cervical region; N17.9 Acute kidney failure, unspecified; I31.3 Pericardial effusion (noninflammatory); I25.10 Atherosclerotic heart disease of native coronary artery without angina pectoris; Z95.1 Presence of aortocoronary bypass graft; I48.2 Chronic atrial fibrillation; Z79.01 Long term (current) use of anticoagulants; Z79.84 Long term (current) use of oral hypoglycemic drugs; I12.9 Hypertensive chronic kidney disease with stage 1 through stage 4 chronic kidney disease, or unspecified chronic kidney disease; E11.22 Type 2 diabetes mellitus with diabetic chronic kidney disease; N18.3 Chronic kidney disease, stage 3 (moderate); E78.5 Hyperlipidemia, unspecified; M06.9 Rheumatoid arthritis, unspecified
CPT/HCPCS: 36415; 36416; 80048; 83735; 85025; 85610; 85730; 93005; 93010; A4216; C1713; C1776; C9113; J1170; J3010; J3475; J3490; J7050; J8540

== ENCOUNTER 2017-12-07 08:39 | Outpatient (CLI) | payer MEDICARE, BC ==
--- NOTE | 2017-12-07 09:22 | RAD ---
CERVICAL SPINE AP AND LATERAL STANDARD: History: M54.12 cervical radiculopathy. Comparison: MRI cervical 10-21-17. FINDINGS: New from the MRI is C6-7 ACDF hardware with discectomy change. There is moderate to severe degenerati ve disc space height loss at C3-4 and C4-5. The fusion hardware appears normal without complication. Moderate calcifications both carotid bulbs. IMPRESSION: Satisfactory post-operative appearance. POS: C
== END 2017-12-07 08:40 | disposition home or self-care (01) ==
LOC: TBSIIMAG 08:39
PROVIDERS: ATTEND Surgery
DX: M54.12 Radiculopathy, cervical region (principal); Z98.1 Arthrodesis status
CPT/HCPCS: 72040

== ENCOUNTER 2019-05-07 09:02 | Outpatient (CLI) | payer MEDICARE, BC ==
--- NOTE | 2019-05-07 09:19 | RAD ---
EXAM: Sinus series HISTORY: Sinusitis COMPARISON: None FINDINGS: No displaced calvarial fracture is seen. There is slight increased density in the right m axillary sinus which may represent partial opacification. There may also be a small amount of fluid in the left maxillary sinus. Density in the bones surrounding the sinuses are normal without signific ant sclerotic change. IMPRESSION: Bilateral maxillary sinus fluid.
== END 2019-05-07 09:03 | disposition home or self-care (01) ==
LOC: BICRAD 09:02
PROVIDERS: ATTEND Family Medicine
DX: J32.9 Chronic sinusitis, unspecified (principal)
CPT/HCPCS: 70220; 80053; 80061; 82043; 83036; 85025; G0103; 36415

== ENCOUNTER 2019-05-31 14:12 | Outpatient (CLI) | payer MEDICARE, BC ==
--- NOTE | 2019-05-31 14:29 | RAD ---
Chest 2 views HISTORY: Cough. COMPARISON: 12/24/2009. FINDINGS: Cardiac silhouette and pulmonary vasculature are unremarkable. Mediastinum is midline with postoperative changes. Postoperative changes of the cervical spine also evident. No confluent airspace consolidation, pneumothorax, or pleural fluid. IMPRESSION: No active cardiopulmonary abnormalities are demonstrated.
== END 2019-05-31 14:13 | disposition home or self-care (01) ==
LOC: BICRAD 14:12
PROVIDERS: ATTEND Family Medicine
DX: R05 Cough (principal)
CPT/HCPCS: 71046

== ENCOUNTER 2019-06-12 09:08 | Outpatient (CLI) | payer MEDICARE, BC ==
[2019-06-12 13:47] LABS: INR-International Normal Ratio 1.6; Prothrombin Time 18.8 SEC (12.0-14.7)
[2019-06-12 13:48] LABS: PTT 38.1 SEC (22.9-36.1)
== END 2019-06-12 09:09 | disposition home or self-care (01) ==
LOC: LABBT 09:08
PROVIDERS: ATTEND Internal Medicine Cardiovascular Disease
DX: Z01.812 Encounter for preprocedural laboratory examination (principal); I25.10 Atherosclerotic heart disease of native coronary artery without angina pectoris
CPT/HCPCS: 85610; 85730

== ENCOUNTER 2019-06-13 06:37 | Day surgery (SDC) | payer MEDICARE, BC ==
[2019-06-12 12:48] VITALS: BMI 29.6
[2019-06-13] MEDS ORDERED: Diazepam 5 MG TAB ONE (07:27)
[2019-06-13] MEDS ORDERED: Iopamidol 370 76% 100 ML VIAL ONE (08:44)
[2019-06-13 09:05] LABS: #Eosinphils 0.1 thou/uL (0.0-0.7); #Lymphocytes 0.6 thou/uL (1.20-3.40); #Monocytes 0.4 thou/uL (0.11-0.59); %Basophils 0.1 % (0.0-1.0); %Eosinophils 1.4 % (0.0-10.0); %Lymphocytes 8.7 % (21.0-51.0); %Monocytes 6.1 % (0.0-10.0); %Neutrophils 83.7 % (42.0-75.0); Hemoglobin 11.8 g/dL (14.0-18.0); Mean Corpuscular HGB CONC 32.2 g/dL (32.0-36.0); Mean Corpuscular Hemoglobin 27.4 pg (27.0-31.0); Mean Corpuscular Volume 85.1 fL (78.0-98.0); Mean Platelet Volume 9.4 fL (7.4-10.4); Platelet Count 170 thou/uL (130-400); RBC Distribution Width 15.3 % (11.5-14.5); White Blood Cell (WBC) Count 7.1 thou/uL (4.8-10.8)
[2019-06-13 09:13] LABS: INR-International Normal Ratio 1.3; Prothrombin Time 15.8 SEC (12.0-14.7)
[2019-06-13 09:17] LABS: Anion Gap 17 mmol/L (10-20); BUN (Urea Nitrogen) 39 mg/dL (8.4-25.7); Calc. Creatinine Clearance 53 mL/min (70-130); Calcium 8.9 mg/dL (7.8-10.44); Carbon Dioxide 23 mmol/L (23-31); Chloride 104 mmol/L (98-107); Estimated GFR-MDRD 46; Glucose 274 mg/dL (80-115); Potassium 3.7 mmol/L (3.5-5.1); Sodium 140 mmol/L (136-145)
[2019-06-13] MEDS ORDERED: Fentanyl 100 MCG/2 ML VIAL ONE (10:01)
[2019-06-13] MEDS ORDERED: Midazolam HCl 2 mg/2 ml Vial ONE (10:01)
== END 2019-06-13 16:10 | disposition home or self-care (01) ==
LOC: CCL 06:37
PROVIDERS: ATTEND Internal Medicine Cardiovascular Disease
PROC: 4A023N7 Measurement of Cardiac Sampling and Pressure, Left Heart, Percutaneous Approach (ICD-10-PCS; principal; 2019-06-13)
PROC: B2111ZZ Fluoroscopy of Multiple Coronary Arteries using Low Osmolar Contrast (ICD-10-PCS; 2019-06-13)
PROC: B2181ZZ Fluoroscopy of Left Internal Mammary Bypass Graft using Low Osmolar Contrast (ICD-10-PCS; 2019-06-13)
PROC: B2131ZZ Fluoroscopy of Multiple Coronary Artery Bypass Grafts using Low Osmolar Contrast (ICD-10-PCS; 2019-06-13)
DX: I25.810 Atherosclerosis of coronary artery bypass graft(s) without angina pectoris (principal); I25.10 Atherosclerotic heart disease of native coronary artery without angina pectoris; I25.82 Chronic total occlusion of coronary artery; I13.0 Hypertensive heart and chronic kidney disease with heart failure and stage 1 through stage 4 chronic kidney disease, or unspecified chronic kidney disease; E11.22 Type 2 diabetes mellitus with diabetic chronic kidney disease; N18.3 Chronic kidney disease, stage 3 (moderate); I50.22 Chronic systolic (congestive) heart failure; E78.00 Pure hypercholesterolemia, unspecified; I48.91 Unspecified atrial fibrillation; I45.10 Unspecified right bundle-branch block; M06.9 Rheumatoid arthritis, unspecified; Z79.01 Long term (current) use of anticoagulants; Z79.82 Long term (current) use of aspirin; Z79.84 Long term (current) use of oral hypoglycemic drugs; Z79.899 Other long term (current) drug therapy; Z95.5 Presence of coronary angioplasty implant and graft
CPT/HCPCS: 36415; 76942; 80048; 85025; 85610; 85730; 93455; 99152; 99153; C1769; J1644; J2250; J3010; Q9967

== ENCOUNTER 2019-07-16 10:55 | Inpatient (IN) | payer MEDICARE, BC ==
[2019-07-16] MEDS ORDERED: DOBUTamine 500 mg/250 ml 250 ML IVPB SCH (13:30)
[2019-07-16 13:42] VITALS: BMI 30.9
[2019-07-16] MEDS: Torsemide 20 MG TAB PO SCH (14:04)
[2019-07-16] MEDS ORDERED: Dextrose 50% Abboject 50 ML SYRINGE IVP PRN (16:08)
[2019-07-16] MEDS ORDERED: Dextrose 5% in Water 1,000 ML IV PRN (16:08)
[2019-07-16] MEDS: Rivaroxaban 10 MG TAB PO SCH (17:02)
[2019-07-16] MEDS: Carvedilol 6.25 MG TAB PO SCH (17:03)
[2019-07-16 17:20] LABS: Hemoglobin 12.6 g/dL (14.0-18.0); Platelet Count 209 thou/uL (130-400)
[2019-07-16] MEDS: Insulin Regular 300 UNITS/3 ML VIAL SC PRN (18:03)
--- NOTE | 2019-07-16 20:40 | HP ---
REASON FOR ADMISSION: Congestive heart failure, systolic, chronic, uncontrolled. HISTORY OF PRESENT ILLNESS: Mr. Rincon is a very pleasant 68-year-old gentleman with history of diabetes and coronary artery disease. The patient has a history of previous coronary artery bypass grafting. He recently was found to have a lowered ejection fraction. He did not have any chest pain, but he noted more swelling of his ankles and shortness of breath. The patient did undergo coronary artery bypass grafting x4 in 2005. The patient did have a heart catheterization done and it revealed that he had patent internal mammary graft to the LAD, a recently occluded graft to the right coronary artery, the right coronary artery was occluded, and severe disease in the circumflex. He had a small vein graft that was anastomosed to the obtuse marginal graft and a small vein graft to the diagonal branch stenosis and a diffusely diseased graft to the obtuse marginal with also 80% distal lesion. Right bundle-branch block on EKG, ejection fraction was 30%. At that time, consideration for high risk percutaneous intervention was given, but the patient was also noted to have atrial fibrillation with some episodes of relative bradycardia. There is some consideration about trying to send him to the [facility] for high risk intervention, but that is about the time the COVID pandemic occurred and there was no possibility of referring the patient electively for these types of procedures. He has been treated medically since then, but his heart failure has worsened. We saw him back in the office on Tuesday. He had severe edema all the way up to his thighs and is more short of breath. Admission to the hospital was discussed at that time, but the patient did not wish to be admitted. He had his torsemide increased and was asked to come back to see us in the office today. He did have a 4-pound diuresis over the weekend, but is still tremendously edematous. An echocardiogram shows an ejection fraction that is now 20% to 25% and has severe elevation of pulmonary artery pressure. The patient has had a biventricular pacemaker defibrillator placed in the meantime. His underlying complex is right bundle-branch block. It was thought best to place a biventricular device in case he ends up in a lot of pacing, but ideally he would be sensing primarily. MEDICATIONS: At home, 1. He is taking carvedilol 25 mg twice a day. 2. Diltiazem, but he has been taken off that. 3. Digoxin 0.125 mg daily. 4. Torsemide increased from 20 mg once a day to 40 a day (20 mg twice a day). 5. Glyburide. 6. Metformin. ALLERGIES: NONE KNOWN. SOCIAL HISTORY: No alcohol or tobacco. REVIEW OF SYSTEMS: GENERAL: Positive for weakness and fatigue. VISION: No changes. HEARING: No changes. PULMONARY: No cough or wheezing. GASTROINTESTINAL: No nausea, vomiting, or diarrhea. SKIN: No rashes. NEUROLOGIC: No unilateral weakness or numbness. PSYCHIATRIC: No unusual depression or anxiety. HEMATOLOGIC: No unusual bruising. GENITOURINARY: No burning with urination. PHYSICAL EXAMINATION: GENERAL: This is a pleasant gentleman. VITAL SIGNS: His blood pressure 140/60 and the pulse was in the 70s. NECK: Neck veins mildly distended. LUNGS: Decreased breath sounds, left base. No wheezing. CARDIAC: Irregular. I do not hear murmur, rub, or gallop. ABDOMEN: Some ascites. EXTREMITIES: 4+ edema, with still edema up to his mid thighs. LABORATORY DATA: Laboratory drawn on Tuesday, the creatinine had gone up to 2.01 from a baseline of 1.2 on April 29 and 1.8 on June 10. The June 10 level was just prior to the cardiac catheterization. IMAGING STUDIES: EKG reveals atrial fibrillation with some biventricular pacing and some sensed rhythm. Echocardiogram - shows ejection fraction, however, it is 20% to 25%. As mentioned, that is worse and he does now have tuyczdog-[id number]-[id number] mitral regurgitation, wwzaxeln-[id number] tricuspid insufficiency with severely elevated pulmonary artery pressure at 75 mmHg systolic and also left pleural effusion. ASSESSMENT: 1. Congestive heart failure, systolic and diastolic mixed, predominantly systolic, worsened despite medical therapy, refractory. 2. Renal failure, worsened. 3. Diabetes. 4. Chronic atrial fibrillation. 5. Degenerative disease in the vein grafts. 6. Renal failure, currently stage 3. GFR is 33. PLAN: 1. We will stop digoxin and try to avoid ventricular pacing. 2. Continue oral diuretics. 3. Dobutamine. 4. We will temporarily reduce carvedilol. 5. Hold lisinopril. 6. The patient will be optimized, still may wish to consider high risk percutaneous intervention. I did discuss this previously with Dr. Zeng in [place]. Unfortunately in the last month, it has really not been feasible to send patients for elective procedures or consultation. This may become an option in the near future. Further care dictated by hospital course. Prognosis guarded. Job ID: [id number]
[2019-07-16] MEDS: Atorvastatin Calcium 40 MG TAB PO SCH (21:05)
[2019-07-17 04:42] LABS: #Eosinphils 0.1 thou/uL (0.0-0.7); #Lymphocytes 1.1 thou/uL (1.20-3.40); #Monocytes 0.7 thou/uL (0.11-0.59); #Neutrophils 5.2 thou/uL (1.40-6.50); %Basophils 0.5 % (0.0-1.0); %Eosinophils 1.8 % (0.0-10.0); %Lymphocytes 15.1 % (21.0-51.0); %Monocytes 10.3 % (0.0-10.0); %Neutrophils 72.3 % (42.0-75.0); Hemoglobin 11.3 g/dL (14.0-18.0); Mean Corpuscular HGB CONC 31.8 g/dL (32.0-36.0); Mean Corpuscular Hemoglobin 27.7 pg (27.0-31.0); Mean Corpuscular Volume 87.3 fL (78.0-98.0); Mean Platelet Volume 9.7 fL (7.4-10.4); Platelet Count 170 thou/uL (130-400); RBC Distribution Width 16.4 % (11.5-14.5); Red Blood Cell (RBC) Count 4.08 mill/uL (4.70-6.10); White Blood Cell (WBC) Count 7.2 thou/uL (4.8-10.8)
[2019-07-17 04:59] LABS: Digoxin 0.94 ng/mL (0.8-2.0)
[2019-07-17 05:01] LABS: ALT (SGPT) 20 U/L (8-55); AST (SGOT) 20 U/L (5-34); Albumin 3.5 g/dL (3.4-4.8); Alkaline Phosphatase 106 U/L (40-110); Anion Gap 14 mmol/L (10-20); BUN (Urea Nitrogen) 52 mg/dL (8.4-25.7); Bilirubin, Total 1.4 mg/dL (0.2-1.2); Calc. Creatinine Clearance 43 mL/min (70-130); Calcium 9.3 mg/dL (7.8-10.44); Carbon Dioxide 29 mmol/L (23-31); Chloride 98 mmol/L (98-107); Estimated GFR-MDRD 36; Globulin 2.2 g/dL (2.4-3.5); Glucose 242 mg/dL (80-115); Iron 50 ug/dL (65-175); Iron Binding Capacity, Total 379 mcg/dL (261-462); Potassium 3.3 mmol/L (3.5-5.1); Protein, Total 5.7 g/dL (5.8-8.1); Sodium 138 mmol/L (136-145)
[2019-07-17] MEDS: Aspirin 81 mg Enteric Coated Tablet PO SCH (07:45)
[2019-07-17] MEDS: Carvedilol 6.25 MG TAB PO SCH ×2 (07:45→16:47)
[2019-07-17] MEDS: Torsemide 20 MG TAB PO SCH (07:46)
[2019-07-17] MEDS: glyBURIDE 5 MG TAB PO SCH (07:46)
[2019-07-17] MEDS ORDERED: Potassium Chloride 20 MEQ TAB PO SCH (09:30)
--- NOTE | 2019-07-17 10:04 | PRG ---
DATE OF SERVICE: 07/17/2019 SUBJECTIVE: Mr. Rincon complains of a cough, especially at night when he tries to lie flat. Otherwise, he is feeling about the same. No chest pain. OBJECTIVE: VITAL SIGNS: His blood pressure is 145/75, pulse is 70, it is paced. NECK: The neck veins are markedly distended. LUNGS: Decreased breath sounds, especially at the left base. CARDIAC: Normal S1. Normal S2. ABDOMEN: Soft. Nontender. EXTREMITIES: Still severe edema up to his thighs. PERTINENT LABORATORY DATA: His ferritin level was low at 32.8. His hemoglobin is 11.3. Digoxin level is 0.9. IMAGING STUDIES: On the echocardiogram, it was noted that the ejection fraction is now lower at 25%. Also, it is noted that the paced beats seem like the ejection fraction is lower than the intrinsic beats. He has a right bundle-branch block pattern. ASSESSMENT: 1. Congestive heart failure, systolic, chronic, still decompensated. 2. Renal failure, slightly improved with the creatinine of 1.88, still stage 3 renal failure. 3. Diabetes. 4. Hypokalemia, potassium 3.3. 5. Biventricular paced rhythm, seems slightly less efficient than his own intrinsic right bundle-branch block pattern. PLAN: 1. He has been taken off digoxin. 2. We will change to intravenous diuretics. 3. Replete potassium. 4. Replete iron. 5. Increase dobutamine. 6. He will still need to be here probably at least 2 more days. Job ID: [id number]
[2019-07-17] MEDS: DOBUTamine 500 mg/250 ml 250 ML IVPB SCH ×2 (10:10→20:53)
[2019-07-17] MEDS: Iron, Sodium Ferric Gluconate 250 MG in Sodium Chloride 0.9% 100 ML IVPB SCH ×2 (11:45→20:53)
[2019-07-17] MEDS: Insulin Regular 300 UNITS/3 ML VIAL SC PRN ×3 (12:43→21:04)
[2019-07-17] MEDS: Furosemide 40 MG/4 ML VIAL SLOW IVP SCH (15:45)
[2019-07-17] MEDS: Rivaroxaban 10 MG TAB PO SCH (16:47)
[2019-07-17] MEDS: Potassium Chloride 20 MEQ TAB PO SCH (16:47)
[2019-07-17] MEDS: Atorvastatin Calcium 40 MG TAB PO SCH (20:52)
[2019-07-18 04:50] LABS: Anion Gap 14 mmol/L (10-20); BUN (Urea Nitrogen) 43 mg/dL (8.4-25.7); Calc. Creatinine Clearance 54 mL/min (70-130); Calcium 9.2 mg/dL (7.8-10.44); Carbon Dioxide 29 mmol/L (23-31); Chloride 98 mmol/L (98-107); Estimated GFR-MDRD 47; Glucose 98 mg/dL (80-115); Potassium 3.3 mmol/L (3.5-5.1); Sodium 138 mmol/L (136-145)
[2019-07-18] MEDS: Furosemide 40 MG/4 ML VIAL SLOW IVP SCH ×2 (05:39→14:46)
[2019-07-18] MEDS: Carvedilol 6.25 MG TAB PO SCH ×2 (08:38→16:32)
[2019-07-18] MEDS: Potassium Chloride 20 MEQ TAB PO SCH ×2 (08:38→16:32)
[2019-07-18] MEDS: Aspirin 81 mg Enteric Coated Tablet PO SCH (08:39)
[2019-07-18] MEDS: glyBURIDE 5 MG TAB PO SCH (08:39)
[2019-07-18] MEDS: Insulin Regular 300 UNITS/3 ML VIAL SC PRN ×3 (11:58→22:05)
[2019-07-18] MEDS ORDERED: Potassium Chloride 20 MEQ TAB PO SCH (12:00)
--- NOTE | 2019-07-18 14:22 | PQF ---
CLINICAL DOCUMENTATION IMPROVEMENT CLARIFICATION FORM: ICD-10 Updated PLEASE DO AN ADDENDUM TO THE PROGRESS NOTE WITH ANY DOCUMENTATION UPDATES OR ADDITIONS AND CARRY THROUGH TO DC SUMMARY. THANK YOU. DATE: 07/18/19 ATTN: DR. HUNTLEY Please exercise your independent, professional judgment in responding to the clarification form. Clinical indicators are provided on the bottom of this form for your review Please check appropriate box(s): HEART FAILURE: A. ACUITY [ ] Acute [ ] Acute on Chronic [ ] Chronic [ ] Other diagnosis [ ] Unable to determine In addition, please specify: Present on Admission (POA): [ ] Yes [ ] No [ ] Unable to determine For continuity of documentation, please document condition throughout progress notes and discharge summary. Thank You. CLINICAL INDICATORS - SIGNS / SYMPTOMS / LABS / RESULTS AND LOCATION IN EMR PN 07/16: "COUGH WHILE LYING FLAT, SEVERE EDEMA UP TO THIGHS, CHF- CHRONIC, STILL DECOMPENSATED; EF NOW LOWER AT 25%." RISKS: H/O HYPERTENSION (H&P) CKD STAGE 3 (H&P) H/O CHF, COMBINED, PREDOMINATELY SYSTOLIC (H&P) TREATMENT: COREG (07/15-PRESENT) IV DOBUTAMINE (07/16-PRESENT) IV LASIX (07/16-PRESENT) TELEMETRY MONITORING (This form is maintained as a part of the permanent medical record) 2014 [employer]. All Rights Reserved [employer] Technical Lead Senior Developer [employer] Win[employer] Viewer [email or web address] [employer] [facility]
[2019-07-18] MEDS: DOBUTamine 500 mg/250 ml 250 ML IVPB SCH (14:50)
[2019-07-18] MEDS: Rivaroxaban 10 MG TAB PO SCH (16:32)
[2019-07-18] MEDS: Atorvastatin Calcium 40 MG TAB PO SCH (22:05)
[2019-07-19 04:28] LABS: Hemoglobin 11.1 g/dL (14.0-18.0); Platelet Count 166 thou/uL (130-400)
[2019-07-19 04:46] LABS: Anion Gap 12 mmol/L (10-20); BUN (Urea Nitrogen) 31 mg/dL (8.4-25.7); Calc. Creatinine Clearance 57 mL/min (70-130); Calcium 9.3 mg/dL (7.8-10.44); Carbon Dioxide 30 mmol/L (23-31); Chloride 98 mmol/L (98-107); Estimated GFR-MDRD 51; Glucose 70 mg/dL (80-115); Potassium 3.3 mmol/L (3.5-5.1); Sodium 137 mmol/L (136-145)
[2019-07-19] MEDS: Furosemide 40 MG/4 ML VIAL SLOW IVP SCH ×2 (05:30→14:46)
[2019-07-19] MEDS: Carvedilol 6.25 MG TAB PO SCH ×2 (08:33→16:32)
[2019-07-19] MEDS: Potassium Chloride 20 MEQ TAB PO SCH ×2 (08:33→16:32)
[2019-07-19] MEDS: Aspirin 81 mg Enteric Coated Tablet PO SCH (08:34)
[2019-07-19] MEDS: glyBURIDE 5 MG TAB PO SCH (08:37)
[2019-07-19] MEDS ORDERED: DOBUTamine 500 mg/250 ml 250 ML IVPB SCH (08:43)
[2019-07-19] MEDS ORDERED: Lisinopril 5 MG TAB PO SCH (09:00)
--- NOTE | 2019-07-19 10:09 | PRG ---
DATE OF SERVICE: 07/19/2019 SUBJECTIVE: Mr. Rincon is doing better. The edema is improving, but he still has severe edema. OBJECTIVE: VITAL SIGNS: His blood pressure 124/69, pulse is in the 80 to 90 range, it is irregularly irregular (atrial fibrillation). LUNGS: Clear. CARDIAC: Irregular. ABDOMEN: Soft, nontender. EXTREMITIES: Still severe edema up to his thighs, but it is actually better. He has scrotal and penile edema, this has improved. PERTINENT LABORATORY DATA: Blood sugar was low again this morning at 70. Potassium is again low at 3.3. ASSESSMENT: 1. Congestive heart failure systolic/diastolic combined (predominantly systolic), chronic, still decompensated. 2. Chronic atrial fibrillation. 3. Coronary artery disease. 4. Renal failure, improving. PLAN: 1. Give additional potassium. 2. Increase Xarelto. 3. Reduce dobutamine. Job ID: [id number]
[2019-07-19] MEDS: Insulin Regular 300 UNITS/3 ML VIAL SC PRN (11:30)
[2019-07-19] MEDS ORDERED: Potassium Chloride 20 MEQ TAB PO SCH ×2 (12:00→20:00)
[2019-07-19] MEDS: Acetaminophen 325 MG TAB PO PRN (16:31)
[2019-07-19] MEDS: Rivaroxaban 10 MG TAB PO SCH (16:32)
[2019-07-19] MEDS: Atorvastatin Calcium 40 MG TAB PO SCH (21:11)
[2019-07-20] MEDS: Acetaminophen 325 MG TAB PO PRN (02:23)
[2019-07-20 04:46] LABS: Anion Gap 15 mmol/L (10-20); BUN (Urea Nitrogen) 28 mg/dL (8.4-25.7); Calc. Creatinine Clearance 54 mL/min (70-130); Calcium 9.2 mg/dL (7.8-10.44); Carbon Dioxide 27 mmol/L (23-31); Chloride 99 mmol/L (98-107); Estimated GFR-MDRD 49; Glucose 222 mg/dL (80-115); Potassium 4.1 mmol/L (3.5-5.1); Sodium 137 mmol/L (136-145)
[2019-07-20] MEDS: Furosemide 40 MG/4 ML VIAL SLOW IVP SCH ×2 (06:37→13:47)
[2019-07-20] MEDS ORDERED: Lisinopril 5 MG TAB PO SCH (09:00)
[2019-07-20] MEDS ORDERED: Lisinopril 10 MG TAB PO SCH (09:00)
[2019-07-20] MEDS: Aspirin 81 mg Enteric Coated Tablet PO SCH (09:06)
[2019-07-20] MEDS: Carvedilol 6.25 MG TAB PO SCH (09:07)
[2019-07-20] MEDS: glyBURIDE 5 MG TAB PO SCH (09:08)
[2019-07-20] MEDS: Potassium Chloride 20 MEQ TAB PO SCH (09:08)
[2019-07-20] MEDS: Insulin Regular 300 UNITS/3 ML VIAL SC PRN (09:09)
[2019-07-20 12:17] VITALS: TEMP 98.1
[2019-07-20] MEDS ORDERED: Potassium Chloride 20 MEQ TAB PO SCH (13:45)
[2019-07-20 16:09] VITALS: BP 140/72
[2019-07-20] MEDS: Rivaroxaban 10 MG TAB PO SCH (17:04)
[2019-07-20] MEDS ORDERED: Atorvastatin Calcium 40 MG TAB PO SCH (21:00)
--- NOTE | 2019-07-21 02:52 | DIS ---
DATE OF ADMISSION: 07/16/2019 DATE OF DISCHARGE: 07/20/2019 FINAL DIAGNOSES: 1. Congestive heart failure, systolic, acute on chronic. 2. Coronary artery disease. 3. Diabetes. 4. Renal insufficiency. 5. Chronic atrial fibrillation. MEDICATIONS: At the time of discharge: 1. Aspirin 81 mg a day. 2. Xarelto 20 mg a day. 3. Torsemide 20 mg twice a day. 4. Coreg 25 mg twice a day. 5. Lisinopril dose reduced to 10 mg a day. 6. Potassium 10 mEq twice a day. 7. Stop digoxin. 8. Diabetes medicines are unchanged. HOSPITAL COURSE: Please see admission note for full details. Briefly, Mr. Rincon is a gentleman who is developing intractable congestive heart failure. He was given oral diuretics on Tuesday with increasing dose, but continued to be in severe heart failure. He initially was reluctant to go in the hospital, but agreed to go in the hospital on Tuesday afternoon. He had received intravenous diuretics here. Also, I have reduced the pacing rate. He has a biventricular pacemaker, but his underlying conduction system has a right bundle-branch block and the ejection fraction actually looks lower with a paced rhythm as opposed to a sensed rhythm. The biventricular device was placed in case he ends up pacing frequently. Certainly, biventricular pacing is better than single-chamber pacing. The patient diuresed adequately. He had a catheterization about a month ago showing a patent internal mammary to the LAD, calcification of the ascending aorta, recently occluded saphenous vein graft to the right coronary, subtotal stenosis to a small and a vein graft to small diagonal branch, and a diffusely diseased graft to the distal circumflex system. Intervention would be high risk. Initially, there was some consideration for trying to go to [place] with high-risk procedure done with potential Impella or other support devices. Due to the coronavirus, there was a decreased accessibility to the medical center at that time. Therefore, we have been treating him medically and also had a defibrillator implanted to reduce risk of sudden cardiac . At this time, the patient is released home. Fortunately, his creatinine did improve here. His creatinine was actually higher on admission with a creatinine of 1.88, it was 2.01 on the , but with changes in the pacing strategy and changing in medication, the creatinine improved to 1.43, and the GFR increased. Prognosis is long-term, is guarded to poor. The patient still has edema, but he diuresed as of this morning 11 pounds and he had additional diuresis this morning and got another dose of Lasix just now. I did send copy of the films to Dr. Zeng in [place] to see whether he would be a candidate for high-risk intervention. The patient did receive intravenous dobutamine up until this morning to help with diuresis. The final diagnosis is as mentioned is congestive heart failure, systolic, acute on chronic. Ejection fraction is now 20% to 25%. I think the patient is also taking Xarelto 20 mg a day and aspirin 81 mg a day. Job ID: [id number]
[2019-07-21] MEDS ORDERED: Potassium Chloride 10 MEQ TAB PO SCH (08:00)
[2019-07-21] MEDS ORDERED: Potassium Chloride 20 MEQ TAB PO SCH (08:00)
[2019-07-21] MEDS ORDERED: Carvedilol 25 MG TAB PO SCH (08:00)
[2019-07-21] MEDS ORDERED: Ezetimibe 10 MG TAB PO SCH (09:00)
[2019-07-21] MEDS ORDERED: Carvedilol 6.25 MG TAB PO SCH (09:00)
[2019-07-21] MEDS ORDERED: Torsemide 20 MG TAB PO SCH (09:00)
== END 2019-07-20 18:00 | disposition home or self-care (01) | DRG 292 ==
LOC: 2NO 12:48
PROVIDERS: ADMIT Internal Medicine Cardiovascular Disease; ATTEND Internal Medicine Cardiovascular Disease
DX: I50.23 Acute on chronic systolic (congestive) heart failure (principal); I48.20 Chronic atrial fibrillation, unspecified; I25.810 Atherosclerosis of coronary artery bypass graft(s) without angina pectoris; E11.22 Type 2 diabetes mellitus with diabetic chronic kidney disease; I25.10 Atherosclerotic heart disease of native coronary artery without angina pectoris; N18.3 Chronic kidney disease, stage 3 (moderate); E87.6 Hypokalemia; I45.10 Unspecified right bundle-branch block; Z95.1 Presence of aortocoronary bypass graft; Z95.0 Presence of cardiac pacemaker
CPT/HCPCS: 36415; 36416; 80048; 80053; 80162; 82728; 83540; 83550; 85014; 85018; 85025; 85049; 93798; J1250; J1815; J1940; J2916; J3490

== ENCOUNTER 2020-11-24 20:17 | Inpatient (IN) | payer MEDICARE, BC ==
[2020-11-24] MEDS ORDERED: Ondansetron PF 4 MG/2 ML Vial ONE (20:50)
[2020-11-24 21:15] LABS: #Lymphocytes 0.5 thou/uL (1.20-3.40); #Monocytes 1.2 thou/uL (0.11-0.59); %Eosinophils 0.1 % (0.0-10.0); %Lymphocytes 3.8 % (21.0-51.0); %Monocytes 8.9 % (0.0-10.0); %Neutrophils 87.2 % (42.0-75.0); Hemoglobin 9.1 g/dL (14.0-18.0); Mean Corpuscular HGB CONC 31.9 g/dL (32.0-36.0); Mean Corpuscular Hemoglobin 26.3 pg (27.0-31.0); Mean Corpuscular Volume 82.5 fL (78.0-98.0); Mean Platelet Volume 9.4 fL (7.4-10.4); Platelet Count 182 thou/uL (130-400); RBC Distribution Width 18.5 % (11.5-14.5); Red Blood Cell (RBC) Count 3.46 mill/uL (4.70-6.10); White Blood Cell (WBC) Count 13.8 thou/uL (4.8-10.8)
[2020-11-24 21:37] LABS: ALT (SGPT) 14 U/L (8-55); AST (SGOT) 16 U/L (5-34); Albumin 3.3 g/dL (3.4-4.8); Alkaline Phosphatase 131 U/L (40-110); Anion Gap 12 mmol/L (10-20); BUN (Urea Nitrogen) 24 mg/dL (8.4-25.7); Bilirubin, Total 2.4 mg/dL (0.2-1.2); Calc. Creatinine Clearance 0 mL/min (70-130); Calcium 9.1 mg/dL (7.8-10.44); Carbon Dioxide 29 mmol/L (23-31); Chloride 96 mmol/L (98-107); Globulin 2.8 g/dL (2.4-3.5); Glucose 130 mg/dL (83-110); Lipase 6 U/L (8-78); Potassium 3.6 mmol/L (3.5-5.1); Protein, Total 6.1 g/dL (5.8-8.1); Sodium 133 mmol/L (136-145)
[2020-11-24 21:45] LABS: Bilirubin Negative (Negative); Blood, Urine Negative (Negative); Clarity Clear (Clear); Glucose, Urine (Dipstick) Normal (Negative); Ketone, Urine Negative (Negative); Leukocyte Negative Leu/uL (Negative); Nitrite Negative (Negative); Protein, Urine (Dipstick) Negative (Neg-Trace); Specific Gravity, Urine 1.005 (1.002-1.036); pH, Urine 6.5 (5.0-9.0)
[2020-11-24 22:00] LABS: CKMB 1.4 ng/mL (0-6.6)
[2020-11-24 22:11] LABS: SARS-CoV-2 NAA Rapid Test Not Detected (NotDetected)
[2020-11-24] MEDS ORDERED: Dextrose 5% in Water 1,000 ML IV PRN (22:55)
[2020-11-24] MEDS ORDERED: HumaLOG 300 UNITS/3 ML VIAL SC PRN (22:55)
[2020-11-24] MEDS ORDERED: Dextrose 50% Abboject 50 ML SYRINGE SLOW IVP PRN (22:55)
[2020-11-24] MEDS ORDERED: Bisacodyl 10 MG SUPP PR PRN (22:55)
[2020-11-24] MEDS ORDERED: Ondansetron PF 4 MG/2 ML Vial IVP PRN (22:55)
[2020-11-24] MEDS ORDERED: Piperacillin/Tazobactam 4.5 GM in Sodium Chloride 0.9% 100 ML IVPB SCH (23:00)
[2020-11-25 02:44] LABS: CKMB 1.4 ng/mL (0-6.6)
[2020-11-25 06:09] LABS: ALT (SGPT) 12 U/L (8-55); AST (SGOT) 15 U/L (5-34); Alkaline Phosphatase 121 U/L (40-110); Anion Gap 12 mmol/L (10-20); BUN (Urea Nitrogen) 22 mg/dL (8.4-25.7); Bilirubin, Total 2.3 mg/dL (0.2-1.2); Calc. Creatinine Clearance 53 mL/min (70-130); Calcium 8.6 mg/dL (7.8-10.44); Carbon Dioxide 27 mmol/L (23-31); Chloride 98 mmol/L (98-107); Globulin 2.6 g/dL (2.4-3.5); Glucose 64 mg/dL (83-110); Potassium 3.3 mmol/L (3.5-5.1); Protein, Total 5.6 g/dL (5.8-8.1); Sodium 134 mmol/L (136-145)
[2020-11-25 06:19] LABS: Hemoglobin 8.9 g/dL (14.0-18.0); Mean Corpuscular Volume 83.3 fL (78.0-98.0); Mean Platelet Volume 9.5 fL (7.4-10.4); Platelet Count 169 thou/uL (130-400); RBC Distribution Width 18.6 % (11.5-14.5); Red Blood Cell (RBC) Count 3.57 mill/uL (4.70-6.10); White Blood Cell (WBC) Count 14.8 thou/uL (4.8-10.8)
[2020-11-25 07:41] LABS: Band 6 % (5-11); Hypochromia SLIGHT = 6-15 cells (100X) (0-5/hpf); Lymphocytes 6 % (21-51); MDiff Complete? YES; Monocytes 6 % (0-10); Neutrophil 82 % (42-75); Platelet Morphology Comment Appears Adequate; Polychromasia SLIGHT = 2-3 cells (100X) (0-2/hpf)
[2020-11-25] MEDS ORDERED: Potassium Chloride 20 MEQ TAB PO SCH (07:45)
[2020-11-25 08:18] LABS: Magnesium 1.6 mg/dL (1.6-2.6)
[2020-11-25] MEDS ORDERED: Potassium Chloride 30 MEQ in Sodium Chloride 0.9% 1,000 ML IV SCH (09:00)
[2020-11-25] MEDS: Famotidine 20 MG TAB PO SCH ×2 (09:46→21:15)
[2020-11-25] MEDS: Carvedilol 6.25 MG TAB PO SCH (09:46)
[2020-11-25] MEDS: Sacubitril 49 MG/Valsartan 51 MG TABLET PO SCH ×2 (09:46→21:15)
[2020-11-25] MEDS: Piperacillin/Tazobactam 3.375 GM in Sodium Chloride 0.9% 100 ML IVPB SCH ×2 (09:47→18:27)
[2020-11-25] MEDS: Enoxaparin Sodium 30 MG/0.3 ML SYRINGE SC SCH (09:52)
[2020-11-25] MEDS: Potassium Chloride 30 MEQ in Sodium Chloride 0.9% 1,000 ML IV SCH (09:52)
[2020-11-25] MEDS: Loratadine 10 MG TAB PO PRN (12:42)
[2020-11-25] MEDS ORDERED: Electrolyte Replacement Protocol 1 EACH FS PRN (12:45)
[2020-11-25] MEDS ORDERED: Torsemide 20 MG TAB PO SCH (16:00)
[2020-11-25] MEDS ORDERED: Magnesium 2 GM/50 ML 2 GM in Premix Bag 1 BAG IVPB SCH (19:00)
[2020-11-25] MEDS: Atorvastatin Calcium 40 MG TAB PO SCH (21:14)
[2020-11-26] MEDS: Piperacillin/Tazobactam 3.375 GM in Sodium Chloride 0.9% 100 ML IVPB SCH ×4 (01:15→21:23)
[2020-11-26] MEDS: Enoxaparin Sodium 30 MG/0.3 ML SYRINGE SC SCH (04:20)
[2020-11-26 05:52] LABS: #Eosinphils 0.1 thou/uL (0.0-0.7); #Lymphocytes 0.4 thou/uL (1.20-3.40); #Neutrophils 11.4 thou/uL (1.40-6.50); %Basophils 0.3 % (0.0-1.0); %Eosinophils 0.4 % (0.0-10.0); %Monocytes 7.4 % (0.0-10.0); %Neutrophils 88.9 % (42.0-75.0); Hemoglobin 8.7 g/dL (14.0-18.0); Mean Corpuscular HGB CONC 30.1 g/dL (32.0-36.0); Mean Corpuscular Volume 83.1 fL (78.0-98.0); Mean Platelet Volume 9.6 fL (7.4-10.4); Platelet Count 183 thou/uL (130-400); RBC Distribution Width 18.5 % (11.5-14.5); Red Blood Cell (RBC) Count 3.49 mill/uL (4.70-6.10); White Blood Cell (WBC) Count 12.8 thou/uL (4.8-10.8)
[2020-11-26 06:06] LABS: Iron 16 ug/dL (65-175); Iron Binding Capacity, Total 291 mcg/dL (261-462)
[2020-11-26 06:07] LABS: ALT (SGPT) 14 U/L (8-55); AST (SGOT) 21 U/L (5-34); Albumin 2.8 g/dL (3.4-4.8); Alkaline Phosphatase 120 U/L (40-110); Anion Gap 11 mmol/L (10-20); BUN (Urea Nitrogen) 24 mg/dL (8.4-25.7); Bilirubin, Total 2.3 mg/dL (0.2-1.2); Calc. Creatinine Clearance 46 mL/min (70-130); Calcium 8.4 mg/dL (7.8-10.44); Carbon Dioxide 26 mmol/L (23-31); Chloride 100 mmol/L (98-107); Globulin 2.8 g/dL (2.4-3.5); Glucose 144 mg/dL (83-110); Magnesium 2.2 mg/dL (1.6-2.6); Phosphorus 2.9 mg/dL (2.3-4.7); Potassium 3.9 mmol/L (3.5-5.1); Protein, Total 5.6 g/dL (5.8-8.1); Sodium 133 mmol/L (136-145)
[2020-11-26] MEDS: Potassium Chloride 30 MEQ in Sodium Chloride 0.9% 1,000 ML IV SCH (06:24)
[2020-11-26] MEDS: Sacubitril 49 MG/Valsartan 51 MG TABLET PO SCH ×2 (06:25→21:22)
[2020-11-26] MEDS: Famotidine 20 MG TAB PO SCH (06:25)
[2020-11-26] MEDS: Carvedilol 6.25 MG TAB PO SCH (06:25)
[2020-11-26] MEDS ORDERED: Iron, Sodium Ferric Gluconate 250 MG in Sodium Chloride 0.9% 100 ML IVPB SCH (09:00)
[2020-11-26] MEDS ORDERED: Iron, Sodium Ferric Gluconate 250 MG in Sodium Chloride 0.9% 250 ML 250 ML IVPB SCH ×2 (09:00→21:00)
[2020-11-26] MEDS ORDERED: Lidocaine 1% w/Epinephrine 1:100K 30 ML VIAL ONE (15:02)
[2020-11-26] MEDS ORDERED: Bupivacaine PF 0.5% 30 ML VIAL ONE (15:02)
[2020-11-26] MEDS ORDERED: Iothalamate Meglumine 60% 50 ML VIAL FS ONE (15:02)
[2020-11-26] MEDS ORDERED: Fentanyl 100 MCG/2 ML VIAL ONE ×4 (15:09→17:28)
[2020-11-26] MEDS ORDERED: Phenylephrine 10 MG/ML VIAL ONE (15:09)
[2020-11-26] MEDS ORDERED: Ondansetron PF 4 MG/2 ML Vial ONE (15:25)
[2020-11-26] MEDS ORDERED: Dexamethasone 20 MG/5 ML VIAL ONE (15:25)
[2020-11-26] MEDS ORDERED: Lidocaine 1% PF 5 ML VIAL ONE (15:25)
[2020-11-26] MEDS ORDERED: PROPOFOL 200 MG/20 ML VIAL ONE (15:25)
[2020-11-26] MEDS ORDERED: Rocuronium Bromide 10 MG/ML (10ML VIAL) ONE (15:25)
[2020-11-26] MEDS ORDERED: Esmolol 100 MG/10 ML VIAL ONE (15:25)
[2020-11-26] MEDS ORDERED: Morphine 4 MG/ML VIAL ONE (16:53)
[2020-11-26] MEDS ORDERED: Non-Formulary Medication 1 EACH PO PRN (17:16)
[2020-11-26] MEDS ORDERED: Acetaminophen 500 MG TAB PO PRN (17:18)
[2020-11-26] MEDS ORDERED: Morphine 2 MG/ML VIAL ONE (17:25)
[2020-11-26] MEDS ORDERED: Promethazine HCl 25 MG/ML VIAL IM/IV PRN (17:30)
[2020-11-26] MEDS ORDERED: Morphine Sulfate 2 MG/ML SYRINGE SLOW IVP PRN (17:30)
[2020-11-26] MEDS ORDERED: Ondansetron HCl/PF 4 MG/2 ML Vial IVP PRN (17:30)
[2020-11-26] MEDS ORDERED: PACU-Morphine 4MG/ML VIAL SLOW IVP PRN (17:30)
[2020-11-26] MEDS: traMADol HCl 50 MG TAB PO PRN (19:53)
[2020-11-26] MEDS ORDERED: Carvedilol 25 MG TAB PO SCH (21:00)
[2020-11-26] MEDS: Ezetimibe 10 MG TAB PO SCH (21:22)
[2020-11-26] MEDS: Atorvastatin Calcium 40 MG TAB PO SCH (21:22)
[2020-11-26] MEDS: Iron, Sodium Ferric Gluconate 250 MG in Sodium Chloride 0.9% 250 ML 250 ML IVPB SCH (21:23)
[2020-11-26] MEDS: Morphine 2 MG/ML VIAL SLOW IVP PRN (21:39)
[2020-11-27] MEDS: traMADol HCl 50 MG TAB PO PRN (00:13)
[2020-11-27] MEDS: Potassium Chloride 30 MEQ in Sodium Chloride 0.9% 1,000 ML IV SCH (00:14)
[2020-11-27] MEDS: Piperacillin/Tazobactam 3.375 GM in Sodium Chloride 0.9% 100 ML IVPB SCH ×4 (05:12→23:35)
[2020-11-27 05:48] LABS: #Lymphocytes 0.2 thou/uL (1.20-3.40); #Monocytes 0.5 thou/uL (0.11-0.59); #Neutrophils 7.7 thou/uL (1.40-6.50); %Lymphocytes 2.4 % (21.0-51.0); %Monocytes 6.1 % (0.0-10.0); %Neutrophils 91.5 % (42.0-75.0); Hemoglobin 8.5 g/dL (14.0-18.0); Mean Corpuscular HGB CONC 30.5 g/dL (32.0-36.0); Mean Corpuscular Hemoglobin 25.8 pg (27.0-31.0); Mean Corpuscular Volume 84.8 fL (78.0-98.0); Mean Platelet Volume 9.2 fL (7.4-10.4); Platelet Count 161 thou/uL (130-400); RBC Distribution Width 18.1 % (11.5-14.5); White Blood Cell (WBC) Count 8.4 thou/uL (4.8-10.8)
[2020-11-27 05:57] LABS: Hemoglobin A1c 6.5 % (4.0-6.0)
[2020-11-27 06:00] LABS: ALT (SGPT) 19 U/L (8-55); AST (SGOT) 41 U/L (5-34); Albumin 2.8 g/dL (3.4-4.8); Alkaline Phosphatase 112 U/L (40-110); Anion Gap 20 mmol/L (10-20); BUN (Urea Nitrogen) 38 mg/dL (8.4-25.7); Bilirubin, Total 1.9 mg/dL (0.2-1.2); Calc. Creatinine Clearance 33 mL/min (70-130); Calcium 8.3 mg/dL (7.8-10.44); Carbon Dioxide 16 mmol/L (23-31); Chloride 102 mmol/L (98-107); Globulin 2.6 g/dL (2.4-3.5); Glucose 246 mg/dL (83-110); Potassium 4.9 mmol/L (3.5-5.1); Protein, Total 5.4 g/dL (5.8-8.1); Sodium 133 mmol/L (136-145)
[2020-11-27] MEDS: HumaLOG 300 UNITS/3 ML VIAL SC PRN ×3 (06:34→21:14)
[2020-11-27] MEDS ORDERED: Sodium Bicarbonate 150 MEQ in Dextrose 5% in Water 1,000 ML IV SCH ×2 (08:00→18:23)
[2020-11-27] MEDS: Clopidogrel Bisulfate 75 MG TAB PO SCH (10:53)
[2020-11-27] MEDS: Iron, Sodium Ferric Gluconate 250 MG in Sodium Chloride 0.9% 250 ML 250 ML IVPB SCH (10:53)
[2020-11-27] MEDS: Famotidine 20 MG TAB PO SCH (10:53)
[2020-11-27] MEDS: Polyethylene Glycol 3350 17 GM Packet PO SCH (10:54)
[2020-11-27] MEDS: Carvedilol 6.25 MG TAB PO SCH (11:02)
[2020-11-27] MEDS: Sacubitril 49 MG/Valsartan 51 MG TABLET PO SCH (11:02)
[2020-11-27] MEDS ORDERED: Sodium Chloride 0.9% 500 ML IV SCH ×2 (11:15→16:45)
[2020-11-27] MEDS ORDERED: Tamsulosin HCl 0.4 MG CAP PO SCH (11:15)
[2020-11-27] MEDS ORDERED: Sodium Chloride 0.9% 1,000 ML IV SCH (11:15)
[2020-11-27] MEDS ORDERED: Albumin 25% 25 GM/100 ML BOT IVPB SCH (12:45)
[2020-11-27 15:26] LABS: Anion Gap 17 mmol/L (10-20); BUN (Urea Nitrogen) 48 mg/dL (8.4-25.7); Calc. Creatinine Clearance 25 mL/min (70-130); Calcium 8.6 mg/dL (7.8-10.44); Carbon Dioxide 21 mmol/L (23-31); Chloride 99 mmol/L (98-107); Glucose 297 mg/dL (83-110); Potassium 4.8 mmol/L (3.5-5.1); Sodium 132 mmol/L (136-145)
[2020-11-27 17:31] LABS: Bilirubin Small (Negative); Blood, Urine Moderate (Negative); Glucose, Urine (Dipstick) Negative (Negative); Ketone, Urine Negative (Negative); Leukocyte Negative (Negative); Nitrite Negative (Negative); Protein, Urine (Dipstick) 30 mg/dL (Neg-Trace)
[2020-11-27 17:33] LABS: Clarity Cloudy (Clear); Specific Gravity, Urine 1.028 (1.002-1.036)
[2020-11-27 17:37] LABS: Bacteria/HPF 1+ HPF (None Seen); Renal Epithelial 0-3 HPF (None Seen); Squamous Epithelial None Seen HPF (0-3); Transitional Epithelial 0-3 HPF (None Seen); WBC/HPF 0-3 HPF (0-3)
[2020-11-27 17:38] LABS: Urine Culture Reflex Yes Yes
[2020-11-27 18:14] LABS: Creatinine, Urine 104.22 mg/dL (63-166)
[2020-11-27] MEDS: Atorvastatin Calcium 40 MG TAB PO SCH (21:10)
[2020-11-27] MEDS: Lantus 1000 UNITS/10 ML VIAL SC SCH (21:13)
[2020-11-27] MEDS: Ezetimibe 10 MG TAB PO SCH (21:13)
[2020-11-28 05:37] LABS: #Lymphocytes 0.2 thou/uL (1.20-3.40); #Monocytes 0.6 thou/uL (0.11-0.59); #Neutrophils 8.6 thou/uL (1.40-6.50); %Lymphocytes 2.5 % (21.0-51.0); %Monocytes 6.8 % (0.0-10.0); %Neutrophils 90.7 % (42.0-75.0); Hemoglobin 8.2 g/dL (14.0-18.0); Mean Corpuscular Hemoglobin 25.6 pg (27.0-31.0); Mean Corpuscular Volume 82.5 fL (78.0-98.0); Mean Platelet Volume 9.2 fL (7.4-10.4); Platelet Count 174 thou/uL (130-400); RBC Distribution Width 18.1 % (11.5-14.5); Red Blood Cell (RBC) Count 3.22 mill/uL (4.70-6.10); White Blood Cell (WBC) Count 9.4 thou/uL (4.8-10.8)
[2020-11-28] MEDS: HumaLOG 300 UNITS/3 ML VIAL SC PRN ×3 (06:02→17:55)
[2020-11-28] MEDS: Piperacillin/Tazobactam 3.375 GM in Sodium Chloride 0.9% 100 ML IVPB SCH ×2 (06:02→17:54)
[2020-11-28 06:07] LABS: ALT (SGPT) 25 U/L (8-55); AST (SGOT) 51 U/L (5-34); Albumin 2.7 g/dL (3.4-4.8); Alkaline Phosphatase 95 U/L (40-110); Anion Gap 12 mmol/L (10-20); BUN (Urea Nitrogen) 61 mg/dL (8.4-25.7); Bilirubin, Total 1.3 mg/dL (0.2-1.2); Calc. Creatinine Clearance 19 mL/min (70-130); Calcium 8.3 mg/dL (7.8-10.44); Carbon Dioxide 25 mmol/L (23-31); Chloride 96 mmol/L (98-107); Globulin 2.6 g/dL (2.4-3.5); Glucose 247 mg/dL (83-110); Potassium 4.3 mmol/L (3.5-5.1); Protein, Total 5.3 g/dL (5.8-8.1); Sodium 129 mmol/L (136-145)
[2020-11-28] MEDS ORDERED: Albumin 25% 25 GM/100 ML BOT IVPB SCH (09:00)
[2020-11-28] MEDS: Famotidine 20 MG TAB PO SCH (09:19)
[2020-11-28] MEDS: Polyethylene Glycol 3350 17 GM Packet PO SCH (09:20)
[2020-11-28] MEDS: Lantus 1000 UNITS/10 ML VIAL SC SCH ×2 (09:20→20:34)
[2020-11-28] MEDS: Clopidogrel Bisulfate 75 MG TAB PO SCH (09:20)
[2020-11-28] MEDS: Carvedilol 6.25 MG TAB PO SCH ×2 (11:28→17:55)
[2020-11-28] MEDS: GUAIFENESIN SF SOLN 200 MG/10 ML UDCUP PO PRN ×2 (14:30→20:34)
[2020-11-28] MEDS ORDERED: Furosemide 40 MG/4 ML VIAL SLOW IVP SCH (18:15)
[2020-11-28] MEDS ORDERED: Sodium Chloride 0.9% 1,000 ML IV SCH (18:30)
[2020-11-28] MEDS ORDERED: Sodium Bicarbonate 150 MEQ in Dextrose 5% in Water 1,000 ML IV SCH (19:00)
[2020-11-28 19:40] LABS: Anion Gap 19 mmol/L (10-20); BUN (Urea Nitrogen) 64 mg/dL (8.4-25.7); Calc. Creatinine Clearance 17 mL/min (70-130); Calcium 8.6 mg/dL (7.8-10.44); Carbon Dioxide 23 mmol/L (23-31); Chloride 90 mmol/L (98-107); Glucose 220 mg/dL (83-110); Potassium 4.4 mmol/L (3.5-5.1); Sodium 128 mmol/L (136-145)
[2020-11-28] MEDS: Ezetimibe 10 MG TAB PO SCH (20:34)
[2020-11-28] MEDS: Tamsulosin HCl 0.4 MG CAP PO SCH (20:34)
[2020-11-28] MEDS: Morphine 2 MG/ML VIAL SLOW IVP PRN (20:36)
[2020-11-29 05:44] LABS: #Eosinphils 0.1 thou/uL (0.0-0.7); #Lymphocytes 0.4 thou/uL (1.20-3.40); #Monocytes 0.5 thou/uL (0.11-0.59); #Neutrophils 8.6 thou/uL (1.40-6.50); %Lymphocytes 4.2 % (21.0-51.0); %Monocytes 5.3 % (0.0-10.0); %Neutrophils 89.5 % (42.0-75.0); Hemoglobin 8.9 g/dL (14.0-18.0); Mean Corpuscular HGB CONC 31.4 g/dL (32.0-36.0); Mean Corpuscular Volume 79.7 fL (78.0-98.0); Platelet Count 191 thou/uL (130-400); RBC Distribution Width 18.3 % (11.5-14.5); Red Blood Cell (RBC) Count 3.57 mill/uL (4.70-6.10); White Blood Cell (WBC) Count 9.6 thou/uL (4.8-10.8)
[2020-11-29] MEDS: Piperacillin/Tazobactam 3.375 GM in Sodium Chloride 0.9% 100 ML IVPB SCH ×2 (05:44→17:52)
[2020-11-29 05:58] LABS: ALT (SGPT) 53 U/L (8-55); AST (SGOT) 89 U/L (5-34); Albumin 3.2 g/dL (3.4-4.8); Alkaline Phosphatase 106 U/L (40-110); Anion Gap 19 mmol/L (10-20); BUN (Urea Nitrogen) 74 mg/dL (8.4-25.7); Bilirubin, Total 1.6 mg/dL (0.2-1.2); Calc. Creatinine Clearance 15 mL/min (70-130); Calcium 8.3 mg/dL (7.8-10.44); Carbon Dioxide 22 mmol/L (23-31); Chloride 93 mmol/L (98-107); Globulin 2.5 g/dL (2.4-3.5); Glucose 98 mg/dL (83-110); Potassium 4.6 mmol/L (3.5-5.1); Protein, Total 5.7 g/dL (5.8-8.1); Sodium 129 mmol/L (136-145)
[2020-11-29] MEDS: Polyethylene Glycol 3350 17 GM Packet PO SCH (09:42)
[2020-11-29] MEDS: Clopidogrel Bisulfate 75 MG TAB PO SCH (09:42)
[2020-11-29] MEDS: Carvedilol 3.125 MG TAB PO SCH ×2 (09:42→17:21)
[2020-11-29] MEDS: Famotidine 20 MG TAB PO SCH (09:42)
[2020-11-29] MEDS: Lantus 1000 UNITS/10 ML VIAL SC SCH ×2 (09:43→20:22)
[2020-11-29] MEDS ORDERED: Furosemide 100 MG/10 ML VIAL SLOW IVP SCH (11:03)
[2020-11-29] MEDS ORDERED: Albumin 25% 25 GM/100 ML BOT IVPB SCH (18:15)
[2020-11-29 18:17] LABS: Anion Gap 20 mmol/L (10-20); BUN (Urea Nitrogen) 75 mg/dL (8.4-25.7); Calc. Creatinine Clearance 14 mL/min (70-130); Calcium 8.3 mg/dL (7.8-10.44); Carbon Dioxide 22 mmol/L (23-31); Chloride 92 mmol/L (98-107); Glucose 124 mg/dL (83-110); Phosphorus 5.1 mg/dL (2.3-4.7); Potassium 4.4 mmol/L (3.5-5.1); Sodium 130 mmol/L (136-145)
[2020-11-29] MEDS: Ezetimibe 10 MG TAB PO SCH (20:10)
[2020-11-29] MEDS: Tamsulosin HCl 0.4 MG CAP PO SCH (20:10)
[2020-11-30] MEDS: Piperacillin/Tazobactam 3.375 GM in Sodium Chloride 0.9% 100 ML IVPB SCH (06:05)
[2020-11-30 08:45] LABS: Albumin 3.1 g/dL (3.4-4.8); Anion Gap 16 mmol/L (10-20); BUN (Urea Nitrogen) 83 mg/dL (8.4-25.7); Calc. Creatinine Clearance 13 mL/min (70-130); Calcium 8.4 mg/dL (7.8-10.44); Carbon Dioxide 25 mmol/L (23-31); Chloride 92 mmol/L (98-107); Glucose 74 mg/dL (83-110); Phosphorus 5.3 mg/dL (2.3-4.7); Potassium 4.2 mmol/L (3.5-5.1); Sodium 129 mmol/L (136-145)
[2020-11-30] MEDS: Famotidine 20 MG TAB PO SCH (09:29)
[2020-11-30] MEDS: Clopidogrel Bisulfate 75 MG TAB PO SCH (09:29)
[2020-11-30] MEDS: Carvedilol 3.125 MG TAB PO SCH ×2 (09:30→17:08)
[2020-11-30] MEDS: Polyethylene Glycol 3350 17 GM Packet PO SCH (09:30)
[2020-11-30] MEDS ORDERED: Furosemide 100 MG/10 ML VIAL SLOW IVP SCH ×2 (09:30→21:00)
[2020-11-30] MEDS: Lantus 1000 UNITS/10 ML VIAL SC SCH ×2 (09:30→21:39)
[2020-11-30 13:31] LABS: Bacteria/HPF None Seen HPF (None Seen); Bilirubin Negative (Negative); Blood, Urine 1+ (Negative); Clarity Clear (Clear); Glucose, Urine (Dipstick) Normal (Negative); Ketone, Urine Negative (Negative); Leukocyte Negative Leu/uL (Negative); Nitrite Negative (Negative); Protein, Urine (Dipstick) 10 mg/dL (Neg-Trace); RBC/HPF 0-3 HPF (0-3); Specific Gravity, Urine 1.007 (1.002-1.036); Squamous Epithelial None Seen HPF (0-3); Urobilinogen Normal mg/dL (Less than 2); WBC/HPF 0-3 HPF (0-3)
[2020-11-30 13:56] LABS: Creatinine, Urine Less than 20.00 mg/dL (63-166); Protein, Urine Random Quant 14 mg/dL (1-14); Sodium, Urine 90 mmol/L (Not Available); Urea Nitrogen, Random Urine 121 mg/dl
[2020-11-30 17:24] LABS: Albumin 2.9 g/dL (3.4-4.8); Anion Gap 20 mmol/L (10-20); BUN (Urea Nitrogen) 80 mg/dL (8.4-25.7); BUN/Creatinine Ratio 12.92; Calc. Creatinine Clearance 12 mL/min (70-130); Calcium 8.4 mg/dL (7.8-10.44); Carbon Dioxide 24 mmol/L (23-31); Chloride 91 mmol/L (98-107); Glucose 119 mg/dL (83-110); Phosphorus 5.4 mg/dL (2.3-4.7); Sodium 131 mmol/L (136-145)
[2020-11-30] MEDS: Ezetimibe 10 MG TAB PO SCH (21:29)
[2020-11-30] MEDS: Tamsulosin HCl 0.4 MG CAP PO SCH (21:29)
[2020-12-01] MEDS ORDERED: Famotidine/PF 20 mg/2ml Vial ONE (05:38)
[2020-12-01 05:51] LABS: #Eosinphils 0.5 thou/uL (0.0-0.7); #Lymphocytes 0.5 thou/uL (1.20-3.40); #Monocytes 0.7 thou/uL (0.11-0.59); #Neutrophils 8.9 thou/uL (1.40-6.50); %Basophils 0.1 % (0.0-1.0); %Eosinophils 4.3 % (0.0-10.0); %Lymphocytes 4.5 % (21.0-51.0); %Monocytes 6.9 % (0.0-10.0); %Neutrophils 84.3 % (42.0-75.0); Mean Corpuscular Hemoglobin 25.5 pg (27.0-31.0); Mean Corpuscular Volume 79.6 fL (78.0-98.0); Platelet Count 215 thou/uL (130-400); RBC Distribution Width 18.9 % (11.5-14.5); Red Blood Cell (RBC) Count 3.52 mill/uL (4.70-6.10); White Blood Cell (WBC) Count 10.6 thou/uL (4.8-10.8)
[2020-12-01 06:16] LABS: ALT (SGPT) 131 U/L (8-55); AST (SGOT) 120 U/L (5-34); Alkaline Phosphatase 139 U/L (40-110); Anion Gap 19 mmol/L (10-20); BUN (Urea Nitrogen) 80 mg/dL (8.4-25.7); BUN/Creatinine Ratio 12.76; Bilirubin, Total 1.4 mg/dL (0.2-1.2); Calc. Creatinine Clearance 12 mL/min (70-130); Calcium 9.1 mg/dL (7.8-10.44); Carbon Dioxide 27 mmol/L (23-31); Chloride 92 mmol/L (98-107); Globulin 2.6 g/dL (2.4-3.5); Glucose 69 mg/dL (83-110); Phosphorus 5.6 mg/dL (2.3-4.7); Potassium 3.6 mmol/L (3.5-5.1); Protein, Total 5.6 g/dL (5.8-8.1); Sodium 134 mmol/L (136-145)
[2020-12-01] MEDS: Famotidine 20 MG TAB PO SCH (09:59)
[2020-12-01] MEDS: Clopidogrel Bisulfate 75 MG TAB PO SCH (09:59)
[2020-12-01] MEDS: Carvedilol 3.125 MG TAB PO SCH ×2 (10:00→17:28)
[2020-12-01] MEDS: Lantus 1000 UNITS/10 ML VIAL SC SCH ×2 (10:01→21:17)
[2020-12-01] MEDS: Polyethylene Glycol 3350 17 GM Packet PO SCH (10:02)
[2020-12-01] MEDS ORDERED: Potassium Chloride 20 MEQ TAB PO SCH ×2 (12:00)
[2020-12-01] MEDS: Tamsulosin HCl 0.4 MG CAP PO SCH (21:16)
[2020-12-01] MEDS: Apixaban 2.5 MG TAB PO SCH (21:16)
[2020-12-01] MEDS: Ezetimibe 10 MG TAB PO SCH (21:16)
[2020-12-02] MEDS: HumaLOG 300 UNITS/3 ML VIAL SC PRN ×2 (05:24→11:32)
[2020-12-02 06:51] LABS: Anion Gap 17 mmol/L (10-20); BUN (Urea Nitrogen) 81 mg/dL (8.4-25.7); Calc. Creatinine Clearance 11 mL/min (70-130); Calcium 9.2 mg/dL (7.8-10.44); Carbon Dioxide 30 mmol/L (23-31); Chloride 94 mmol/L (98-107); Glucose 215 mg/dL (83-110); Phosphorus 4.8 mg/dL (2.3-4.7); Potassium 3.7 mmol/L (3.5-5.1); Sodium 137 mmol/L (136-145)
[2020-12-02] MEDS ORDERED: 1/2 NS w/KCL 20 mEq 1,000 ML IV SCH ×2 (07:45→08:25)
[2020-12-02] MEDS: Clopidogrel Bisulfate 75 MG TAB PO SCH (09:00)
[2020-12-02] MEDS: Apixaban 2.5 MG TAB PO SCH ×2 (09:00→21:29)
[2020-12-02] MEDS: Carvedilol 3.125 MG TAB PO SCH ×2 (09:00→17:27)
[2020-12-02] MEDS: Famotidine 20 MG TAB PO SCH (09:00)
[2020-12-02] MEDS: Polyethylene Glycol 3350 17 GM Packet PO SCH (09:01)
[2020-12-02] MEDS: Lantus 1000 UNITS/10 ML VIAL SC SCH ×2 (09:16→21:40)
[2020-12-02] MEDS: 1/2 NS w/KCL 20 mEq 1,000 ML IV SCH ×2 (10:18→21:40)
[2020-12-02] MEDS ORDERED: HumaLOG 300 UNITS/3 ML VIAL SC PRN (17:51)
[2020-12-02 19:19] LABS: Anion Gap 15 mmol/L (10-20); BUN (Urea Nitrogen) 69 mg/dL (8.4-25.7); Calc. Creatinine Clearance 13 mL/min (70-130); Calcium 9.4 mg/dL (7.8-10.44); Carbon Dioxide 30 mmol/L (23-31); Chloride 94 mmol/L (98-107); Glucose 154 mg/dL (83-110); Potassium 3.8 mmol/L (3.5-5.1); Sodium 135 mmol/L (136-145)
[2020-12-02] MEDS: Ezetimibe 10 MG TAB PO SCH (21:29)
[2020-12-02] MEDS: Tamsulosin HCl 0.4 MG CAP PO SCH (21:29)
[2020-12-02] MEDS: Loratadine 10 MG TAB PO PRN (21:32)
[2020-12-03 06:29] LABS: Albumin 3.1 g/dL (3.4-4.8); Anion Gap 14 mmol/L (10-20); BUN (Urea Nitrogen) 61 mg/dL (8.4-25.7); BUN/Creatinine Ratio 13.59; Calc. Creatinine Clearance 15 mL/min (70-130); Calcium 8.7 mg/dL (7.8-10.44); Carbon Dioxide 28 mmol/L (23-31); Chloride 97 mmol/L (98-107); Glucose 143 mg/dL (83-110); Phosphorus 3.5 mg/dL (2.3-4.7); Potassium 3.4 mmol/L (3.5-5.1); Sodium 136 mmol/L (136-145)
[2020-12-03] MEDS: Clopidogrel Bisulfate 75 MG TAB PO SCH (09:06)
[2020-12-03] MEDS: Apixaban 2.5 MG TAB PO SCH ×2 (09:06→20:28)
[2020-12-03] MEDS: Carvedilol 3.125 MG TAB PO SCH ×2 (09:06→17:24)
[2020-12-03] MEDS: Famotidine 20 MG TAB PO SCH (09:06)
[2020-12-03] MEDS: Lantus 1000 UNITS/10 ML VIAL SC SCH ×2 (09:07→20:57)
[2020-12-03] MEDS: 1/2 NS w/KCL 20 mEq 1,000 ML IV SCH ×2 (09:07→21:21)
[2020-12-03] MEDS: Polyethylene Glycol 3350 17 GM Packet PO SCH (09:07)
[2020-12-03] MEDS: GUAIFENESIN SF SOLN 200 MG/10 ML UDCUP PO PRN (09:16)
[2020-12-03] MEDS ORDERED: Albumin 25% 25 GM/100 ML BOT IVPB SCH (17:00)
[2020-12-03] MEDS: Ezetimibe 10 MG TAB PO SCH (20:27)
[2020-12-03] MEDS: Tamsulosin HCl 0.4 MG CAP PO SCH (20:28)
[2020-12-04] MEDS: GUAIFENESIN SF SOLN 200 MG/10 ML UDCUP PO PRN (04:07)
[2020-12-04 07:40] LABS: #Eosinphils 0.3 thou/uL (0.0-0.7); #Lymphocytes 0.9 thou/uL (1.20-3.40); #Monocytes 0.8 thou/uL (0.11-0.59); #Neutrophils 8.6 thou/uL (1.40-6.50); %Basophils 0.3 % (0.0-1.0); %Eosinophils 3.2 % (0.0-10.0); %Lymphocytes 8.7 % (21.0-51.0); %Monocytes 7.9 % (0.0-10.0); %Neutrophils 79.9 % (42.0-75.0); Hemoglobin 9.3 g/dL (14.0-18.0); Mean Corpuscular HGB CONC 30.7 g/dL (32.0-36.0); Mean Corpuscular Hemoglobin 25.3 pg (27.0-31.0); Mean Corpuscular Volume 82.4 fL (78.0-98.0); Mean Platelet Volume 9.5 fL (7.4-10.4); Platelet Count 271 thou/uL (130-400); RBC Distribution Width 20.8 % (11.5-14.5); Red Blood Cell (RBC) Count 3.66 mill/uL (4.70-6.10); White Blood Cell (WBC) Count 10.7 thou/uL (4.8-10.8)
[2020-12-04 07:58] LABS: Albumin 3.1 g/dL (3.4-4.8); Anion Gap 13 mmol/L (10-20); BUN (Urea Nitrogen) 46 mg/dL (8.4-25.7); Calc. Creatinine Clearance 21 mL/min (70-130); Calcium 8.6 mg/dL (7.8-10.44); Carbon Dioxide 28 mmol/L (23-31); Chloride 98 mmol/L (98-107); Glucose 99 mg/dL (83-110); Phosphorus 2.9 mg/dL (2.3-4.7); Potassium 3.5 mmol/L (3.5-5.1); Sodium 135 mmol/L (136-145)
[2020-12-04] MEDS: Apixaban 2.5 MG TAB PO SCH (08:37)
[2020-12-04] MEDS: Famotidine 20 MG TAB PO SCH (08:37)
[2020-12-04] MEDS: Clopidogrel Bisulfate 75 MG TAB PO SCH (08:37)
[2020-12-04] MEDS: Polyethylene Glycol 3350 17 GM Packet PO SCH (08:39)
[2020-12-04] MEDS: Lantus 1000 UNITS/10 ML VIAL SC SCH (08:43)
[2020-12-04] MEDS: Carvedilol 3.125 MG TAB PO SCH (08:45)
[2020-12-04 09:06] VITALS: BMI 26.6
[2020-12-04 12:23] VITALS: BP 132/74; TEMP 98.1
[2020-12-04] MEDS ORDERED: Carvedilol 3.125 MG TAB PO SCH (17:00)
[2020-12-04] MEDS ORDERED: Carvedilol 6.25 MG TAB PO SCH (17:00)
== END 2020-12-04 16:40 | disposition home or self-care (01) | DRG 417 ==
LOC: ERS 20:17 → 3SE 22:35 → SURG A 11-26 20:09
PROVIDERS: ADMIT Internal Medicine; ATTEND Internal Medicine
PROC: 0FT44ZZ Resection of Gallbladder, Percutaneous Endoscopic Approach (ICD-10-PCS; principal; 2020-11-26)
PROC: BF131ZZ Fluoroscopy of Gallbladder and Bile Ducts using Low Osmolar Contrast (ICD-10-PCS; 2020-11-26)
DX: K80.00 Calculus of gallbladder with acute cholecystitis without obstruction (principal); I50.23 Acute on chronic systolic (congestive) heart failure; N17.0 Acute kidney failure with tubular necrosis; D62 Acute posthemorrhagic anemia; E87.2 Acidosis; I13.0 Hypertensive heart and chronic kidney disease with heart failure and stage 1 through stage 4 chronic kidney disease, or unspecified chronic kidney disease; E87.1 Hypo-osmolality and hyponatremia; Z20.822 Contact with and (suspected) exposure to COVID-19; I25.10 Atherosclerotic heart disease of native coronary artery without angina pectoris; I25.5 Ischemic cardiomyopathy; N18.30 Chronic kidney disease, stage 3 unspecified; R79.89 Other specified abnormal findings of blood chemistry; R33.9 Retention of urine, unspecified; I95.9 Hypotension, unspecified; I48.0 Paroxysmal atrial fibrillation; E11.22 Type 2 diabetes mellitus with diabetic chronic kidney disease; E78.5 Hyperlipidemia, unspecified; M06.9 Rheumatoid arthritis, unspecified; E87.6 Hypokalemia; D63.1 Anemia in chronic kidney disease; E88.09 Other disorders of plasma-protein metabolism, not elsewhere classified; Z80.3 Family history of malignant neoplasm of breast; Z80.51 Family history of malignant neoplasm of kidney; Z80.0 Family history of malignant neoplasm of digestive organs; Z95.5 Presence of coronary angioplasty implant and graft; Z95.810 Presence of automatic (implantable) cardiac defibrillator; Z79.01 Long term (current) use of anticoagulants; Z79.4 Long term (current) use of insulin; Z79.899 Other long term (current) drug therapy
CPT/HCPCS: 36415; 36416; 47532; 71045; 76705; 76770; 80053; 80069; 81001; 81003; 82553; 82570; 82728; 83036; 83540; 83550; 83690; 83735; 84100; 84156; 84300; 84484; 84540; 85025; 87086; 88304; 93005; 93970; 96365; 96366; J1100; J1610; J1815; J1940; J2270; J2370; J2405; J2543; J2704; J2916; J3010; J3475; J3480; J3490; J7030; J7050; J7070; P9047; Q9961; S0020; U0002

== ENCOUNTER 2024-12-04 08:25 | Outpatient (CLI) | payer MEDICARE, BC | END 2024-12-04 08:26 | disposition home or self-care (01) | LOC: LABBT 08:25 | PROVIDERS: ATTEND Internal Medicine Cardiovascular Disease | DX: Z01.810 Encounter for preprocedural cardiovascular examination (principal); I48.21 Permanent atrial fibrillation | CPT/HCPCS: 93005; 93010 ==

== ENCOUNTER 2024-12-04 08:30 | Inpatient (IN) | payer MEDICARE, BC ==
[2024-12-04 08:44] VITALS: BMI 23.5
[2024-12-04 10:30] LABS: #Basophils Less than 0.03 10x3/uL (0.0-0.2); #Eosinophils 0.09 10x3/uL (0.0-0.7); #Monocytes 0.34 10x3/uL (0.11-0.59); #Neutrophils 5.70 10x3/uL (1.40-6.50); %Basophils 0.3 % (0.0-1.0); %Eosinophils 1.4 % (0.0-10.0); %Lymphocytes 6.2 % (21.0-51.0); %Monocytes 5.2 % (0.0-10.0); %Neutrophils 86.6 % (42.0-75.0); Hematocrit 38.2 % (42.0-52.0); Hemoglobin 11.9 g/dL (14.0-18.0); Mean Corpuscular Hemoglobin 27.2 pg (27.0-31.0); Mean Corpuscular Volume 87.2 fL (78.0-98.0); Platelet Count 129 10x3/uL (130-400); Red Blood Cell (RBC) Count 4.38 mill/uL (4.70-6.10); White Blood Cell (WBC) Count 6.58 10x3/uL (4.8-10.8)
[2024-12-04 10:44] LABS: INR-International Normal Ratio 1.6; Prothrombin Time 18.7 sec (12.0-14.7)
[2024-12-04 10:45] LABS: PTT 52.7 sec (22.9-36.1)
[2024-12-04 10:52] LABS: ALT (SGPT) 41 U/L (Less than 45); AST (SGOT) 39 U/L (11-34); Albumin 3.8 g/dL (3.1-4.5); Alkaline Phosphatase 117 U/L (40-110); Anion Gap 13 mmol/L (10-20); BUN (Urea Nitrogen) 24 mg/dL (8.4-25.7); Bilirubin, Total 0.8 mg/dL (0.3-1.2); Calc. Creatinine Clearance 0 mL/min (70-130); Calcium 9.2 mg/dL (7.8-10.44); Carbon Dioxide 28 mmol/L (23-31); Chloride 101 mmol/L (98-107); Globulin 2.7 g/dL (2.4-3.5); Glucose 231 mg/dL (83-110); Potassium 4.2 mmol/L (3.5-5.1); Sodium 138 mmol/L (136-145)
[2024-12-11] MEDS ORDERED: CEFAZOLIN 2 GM VIAL ONE (08:58)
[2024-12-11] MEDS ORDERED: Heparin 10,000 UNITS/ 10 ML VIAL ONE (08:58)
[2024-12-11] MEDS ORDERED: Rocuronium Bromide 10 MG/ML (10ML VIAL) ONE (10:05)
[2024-12-11] MEDS ORDERED: Ondansetron PF 4 MG/2 ML Vial ONE (10:05)
[2024-12-11] MEDS ORDERED: SUGAMMADEX SODIUM 200 MG/2 ML VIAL ONE (10:05)
[2024-12-11] MEDS ORDERED: Etomidate 40 MG (20 mL) VIAL ONE (10:06)
[2024-12-11] MEDS ORDERED: PROPOFOL 200 MG/20 ML VIAL ONE (10:22)
[2024-12-11] MEDS ORDERED: Sevoflurane 250 ML INH ANEST BOTTLE ONE (10:39)
[2024-12-11] MEDS ORDERED: Iopamidol 370 76% 100 ML VIAL ONE (14:00)
== END 2024-12-11 15:22 | disposition home or self-care (01) | DRG 274 ==
LOC: SURG A 12-11 06:56
PROVIDERS: ADMIT Internal Medicine Cardiovascular Disease; ATTEND Internal Medicine Cardiovascular Disease
PROC: 02L73DK Occlusion of Left Atrial Appendage with Intraluminal Device, Percutaneous Approach (ICD-10-PCS; principal; 2024-12-11)
PROC: B245ZZ4 Ultrasonography of Left Heart, Transesophageal (ICD-10-PCS; 2024-12-11)
PROC: 3E033XZ Introduction of Vasopressor into Peripheral Vein, Percutaneous Approach (ICD-10-PCS; 2024-12-11)
PROC: 3E03329 Introduction of Other Anti-infective into Peripheral Vein, Percutaneous Approach (ICD-10-PCS; 2024-12-11)
DX: I48.21 Permanent atrial fibrillation (principal); Z00.6 Encounter for examination for normal comparison and control in clinical research program; I50.22 Chronic systolic (congestive) heart failure; I13.0 Hypertensive heart and chronic kidney disease with heart failure and stage 1 through stage 4 chronic kidney disease, or unspecified chronic kidney disease; E78.5 Hyperlipidemia, unspecified; N18.30 Chronic kidney disease, stage 3 unspecified; M06.9 Rheumatoid arthritis, unspecified; I25.10 Atherosclerotic heart disease of native coronary artery without angina pectoris; I08.1 Rheumatic disorders of both mitral and tricuspid valves; E11.22 Type 2 diabetes mellitus with diabetic chronic kidney disease; I42.9 Cardiomyopathy, unspecified; Z95.810 Presence of automatic (implantable) cardiac defibrillator; Z90.49 Acquired absence of other specified parts of digestive tract; Z98.890 Other specified postprocedural states; Z95.1 Presence of aortocoronary bypass graft; Z95.5 Presence of coronary angioplasty implant and graft; Z98.1 Arthrodesis status; I25.2 Old myocardial infarction; Z79.899 Other long term (current) drug therapy; Z79.4 Long term (current) use of insulin; Z79.01 Long term (current) use of anticoagulants
CPT/HCPCS: 33340; 36416; 80053; 85025; 85347; 85610; 85730; 86850; 86900; 86901; 93312; C1753; C1760; C1889; C1893; C1894; J1644; J2405; J2704; J2720; J3010

== ENCOUNTER 2025-01-23 09:14 | Outpatient (CLI) | payer MEDICARE, BC ==
[2025-01-23 11:02] LABS: #Basophils Less than 0.03 10x3/uL (0.0-0.2); #Eosinophils 0.08 10x3/uL (0.0-0.7); #Monocytes 0.33 10x3/uL (0.11-0.59); #Neutrophils 5.70 10x3/uL (1.40-6.50); %Basophils 0.2 % (0.0-1.0); %Eosinophils 1.2 % (0.0-10.0); %Lymphocytes 6.5 % (21.0-51.0); %Monocytes 5.0 % (0.0-10.0); %Neutrophils 86.6 % (42.0-75.0); Hematocrit 38.0 % (42.0-52.0); Hemoglobin 11.7 g/dL (14.0-18.0); Mean Corpuscular Hemoglobin 26.9 pg (27.0-31.0); Mean Corpuscular Volume 87.4 fL (78.0-98.0); Platelet Count 135 10x3/uL (130-400); Red Blood Cell (RBC) Count 4.35 mill/uL (4.70-6.10); White Blood Cell (WBC) Count 6.58 10x3/uL (4.8-10.8)
[2025-01-23 11:19] LABS: Anion Gap 11 mmol/L (10-20); BUN (Urea Nitrogen) 25 mg/dL (8.4-25.7); Calc. Creatinine Clearance 0 mL/min (70-130); Calcium 9.2 mg/dL (7.8-10.44); Carbon Dioxide 30 mmol/L (23-31); Chloride 101 mmol/L (98-107); Glucose 176 mg/dL (83-110); Potassium 4.3 mmol/L (3.5-5.1); Sodium 138 mmol/L (136-145)
[2025-01-23 11:20] LABS: INR-International Normal Ratio 1.6; Prothrombin Time 19.2 sec (12.0-14.7)
[2025-01-23 11:21] LABS: PTT 51.2 sec (22.9-36.1)
== END 2025-01-23 09:15 | disposition home or self-care (01) ==
LOC: LABBT 09:14
PROVIDERS: ATTEND Internal Medicine Cardiovascular Disease
DX: Z01.812 Encounter for preprocedural laboratory examination (principal); I48.19 Other persistent atrial fibrillation; K92.2 Gastrointestinal hemorrhage, unspecified
CPT/HCPCS: 80048; 85025; 85610; 85730

== ENCOUNTER 2025-01-29 06:07 | Day surgery (SDC) | payer MEDICARE, BC ==
[2025-01-23 09:29] VITALS: BMI 23.5
[2025-01-29] MEDS ORDERED: Etomidate 40 MG (20 mL) VIAL ONE (07:11)
[2025-01-29] MEDS ORDERED: PHENYLEPHRINE-NS 100 MCG/ML 10 ML SYRINGE ONE (07:11)
[2025-01-29] MEDS ORDERED: Lidocaine 1% (PF) 30 ML VIAL ONE (07:11)
[2025-01-29] MEDS ORDERED: PROPOFOL 200 MG/20 ML VIAL ONE (07:39)
== END 2025-01-29 09:18 | disposition home or self-care (01) ==
LOC: SDC 06:07
PROVIDERS: ATTEND Internal Medicine Cardiovascular Disease
PROC: B245ZZ4 Ultrasonography of Left Heart, Transesophageal (ICD-10-PCS; principal; 2025-01-29)
DX: I48.19 Other persistent atrial fibrillation (principal); K92.2 Gastrointestinal hemorrhage, unspecified; Z90.49 Acquired absence of other specified parts of digestive tract; Z95.1 Presence of aortocoronary bypass graft
CPT/HCPCS: 93312; J2704; J2003